=== PATIENT | female | born 1975 | race Caucasian/White ===

== ENCOUNTER 2018-11-07 19:44 | Inpatient (IN) | payer OTHER ==
[2018-11-07 19:48] VITALS: BMI 16.2
[2018-11-07] MEDS ORDERED: SODIUM CHLORIDE 0.9% 1000 ML INFUS.BAG IV ONE (20:06)
[2018-11-07] MEDS ORDERED: ONDANSETRON 4 MG/2 ML VIAL IVPUSH ONE (20:06)
[2018-11-07] MEDS ORDERED: FAMOTIDINE 20 MG/50 ML IVPB 20 MG/50 ML MG IVPB ONE ×2 (20:06→20:29)
[2018-11-07] MEDS ORDERED: ONDANSETRON 4 MG/2 ML VIAL ONE (20:28)
[2018-11-07 20:34] LABS: BASO % 1.1 % (0-2.0); EOS % 0.2 % (0-4.5); HEMATOCRIT 31.3 % (32.4-45.2); LYMPH % 23.7 % (8-40); MCH 31.9 pg (25.7-33.7); MCHC 35.1 g/dl (32.0-36.0); MEAN CELL VOLUME 90.9 fl (80-96); MEAN PLT VOLUME 7.8 fl (7.5-11.1); PLATELET COUNT 162 K/MM3 (134-434); RBC 3.45 M/mm3 (3.60-5.2); RDW 18.3 % (11.6-15.6); WHITE BLOOD COUNT 3.8 K/mm3 (4.0-10.0)
--- NOTE | 2018-11-07 20:34 | PDOC ---
History of Present Illness - General Chief Complaint: Nausea/Vomiting Stated Complaint: VOMITING Time Seen by Provider: 11/07/18 19:59 History Source: Patient Exam Limitations: No Limitations - History of Present Illness Initial Comments: 11/07/18 20:12 The patient is a 43F with a PMH of epilepsy and possible vertigo (takes meclizine) who presents to the ER with 1 day of vertiginous dizziness, nausea, and vomiting. The patient states that she was on her way to an event and began to feel vertiginous dizziness. She then developed nausea and vomiting. She states that she gets these episodes when she feels seizures, but did not have a seizure today. She denies any numbness, tingling, or weakness, fever, chills, CP , SOB. She admits to periumbilical abdominal pain which started with her vomiting. She denies any bloody or bilious vomiting. Past History - Past Medical History Allergies/Adverse Reactions: Allergies Allergy/AdvReac Type Severity Reaction Status Date / Time No Known Allergies Allergy Verified 11/07/18 19:48 COPD: No Seizures: Yes - Suicide/Smoking/Psychosocial Hx Smoking History: Never smoked Review of Systems - Review of Systems Able to Perform ROS?: Yes Comments:: 11/07/18 20:51 GENERAL/CONSTITUTIONAL: No fever or chills. No weakness. HEAD, EYES, EARS, NOSE AND THROAT: No change in vision. No ear pain or discharge. No sore throat. CARDIOVASCULAR: No chest pain, palpitations, or lightheadedness. RESPIRATORY: No cough, wheezing, shortness of breath, or hemoptysis. GASTROINTESTINAL: + for nausea, vomiting, and abdominal pain. No diarrhea or constipation. GENITOURINARY: No dysuria, frequency, hematuria, or change in urination. MUSCULOSKELETAL: No joint or muscle swelling or pain. No neck or back pain. SKIN: No rash or lesions. NEUROLOGIC: + for vertiginous dizziness. No headache, numbness, tingling, focal weakness, loss of consciousness, or change in strength/sensation. Is the patient limited Japanese proficient: No *Physical Exam - Vital Signs Last Vital Signs Temp Pulse Resp BP Pulse Ox 97.3 F L 70 18 102/32 L 100 11/07/18 19:45 11/07/18 19:45 11/07/18 19:45 11/07/18 19:45 11/07/18 19:45 - Physical Exam Comments: 11/07/18 20:52 GENERAL: Well developed, well nourished. Awake and alert. No acute distress. HEENT: Normocephalic, atraumatic. Hearing grossly normal. Moist mucous membranes. PERRLA, EOMI. No conjunctival pallor. NECK: Supple. Full ROM. No JVD. CARDIOVASCULAR: Regular rate and rhythm. No murmurs, rubs, or gallops. Distal pulses are 2+ and symmetric. PULMONARY: No evidence of respiratory distress. Lungs clear to auscultation bilaterally. No wheezing, rales or rhonchi. ABDOMINAL: Soft. Non-tender. Non-distended. No rebound or guarding. GENITOURINARY: No CVA tenderness bilaterally. MUSCULOSKELETAL: Normal range of motion at all joints. No bony deformities or tenderness. EXTREMITIES: No cyanosis. No clubbing. No edema. No calf tenderness or swelling. SKIN: Warm and dry. Normal capillary refill. No rashes. No jaundice. NEUROLOGICAL: Alert, awake, appropriate. Cranial nerves 2-12 intact. No deficits to light touch and temperature in face, upper extremities and lower extremities. 5/5 strength in deltoids, biceps, triceps, quadriceps, hamstrings, and gastrocnemius. Finger to nose normal bilaterally. Normal speech. Gait is normal without ataxia. PSYCHIATRIC: Cooperative. Good eye contact. Appropriate mood and affect. Moderate Sedation - Procedure Monitoring Vital Signs: Procedure Monitoring Vital Signs Temperature 97.3 F L 11/07/18 19:45 Pulse Rate 70 11/07/18 19:45 Respiratory Rate 18 11/07/18 19:45 Blood Pressure 102/32 L 11/07/18 19:45 O2 Sat by Pulse Oximetry (%) 100 11/07/18 19:45 ED Treatment Course - LABORATORY CBC & Chemistry Diagram: 11/07/18 20:12 11/07/18 20:12 Medical Decision Making - Medical Decision Making 11/07/18 20:52 The patient is a 43F with a PMH of epilepsy and vertigo who presents to the ER with worsening vertiginous symptoms. Will treat symptomatically and reassess. Pt mildly uncomfortable appearing. Pending labs and medications. 11/07/18 23:14 CBC shows mild leukopenia. CMP WNL. Preg negative. CTH negative. Pt requiring multiple doses of ativan for nauseous sensation. 11/07/18 23:24 Pt continues to feel vertiginous sensation with blurry/double vision. Concern for central cause of vertigo. Will microblog for admission. 11/07/18 23:38 Pt refused meclizine because "it makes her feel more dizzy". 11/08/18 00:[address] Hammond for admission. *DC/Admit/Observation/Transfer Diagnosis at time of Disposition: Dizziness, Vertigo - Discharge Dispostion Condition at time of disposition: Guarded Decision to Admit order: Yes - Referrals - Patient Instructions - Post Discharge Activity
--- NOTE | 2018-11-07 20:40 | PDOC ---
Attending Attestation - HPI HPI: 11/07/18 21:18 The patient is a 43 year old female, with a significant past medical history of epilepsy and possible vertigo (on meclizine), who presents to the emergency department with, 1 dizziness described as room-spinning with associated nausea and NBNB vomiting. She denies recent fevers or chills. She denies recent diarrhea or constipation. She denies recent dysuria, frequency, urgency or hematuria. She denies recent chest pain or shortness of breath. Allergies: NKDA - Physicial Exam PE: 11/07/18 22:01 GENERAL: Awake, alert, and fully oriented, in no acute distress HEAD: No signs of trauma +Eyes: Vertiginous horizontal eye movement. ENT: Hearing grossly normal NECK: Normal ROM. EXTREMITIES: Normal range of motion, no edema. No clubbing or cyanosis. No cords, erythema, or tenderness +NEUROLOGICAL: Subjective decreased sensation on the right side. Strength 5/5. Finger to nose normal. Cranial nerves II through XII grossly intact. Normal speech. SKIN: Warm, Dry, normal turgor, no rashes or lesions noted. <Dheeraj Catherine - Last Filed: 11/07/18 22:01> - Resident Resident Name: Joesph Cho - ED Attending Attestation I have performed the following: I have examined & evaluated the patient, The case was reviewed & discussed with the resident, I agree w/resident's findings & plan, Exceptions are as noted - Physicial Exam PE: 11/08/18 14:34 CORRECTION TO SCRIBE NOTE: Subject decreased sensation on left side, not right side. CN II-XII intact except for subjective decreased sensation on left side. 11/08/18 14:35 Horizontal ocular movements induced vertigo, though I did not witness nystagmus. - Medical Decision Making 11/07/18 20:46 A portion of this note was documented by scribe services under my direction. I have reviewed the details of the note, within reason, and agree with the documentation with the following case summary and management plan written by me. Patient treated in the ED. Nursing notes are reviewed and incorporated into the medical decision-making. Vital signs reviewed. Peripheral IV access obtained by the nurse, laboratory studies are drawn and sent, reviewed and interpreted by myself. Vital Signs Temp Pulse Resp BP Pulse Ox 97.3 F L 70 18 102/32 L 100 11/07/18 19:45 11/07/18 19:45 11/07/18 19:45 11/07/18 19:45 11/07/18 19:45 43-year-old female with history of epilepsy, vertigo history presents with vertiginous like symptoms since this morning. Patient reported that she felt very intense dizziness but denies headaches. Reports nausea with this. Denies recent illnesses, fevers, chills. Patient reported that she had a similar episode like this before which was supposedly vertigo. I suspect patient likely has peripheral vertigo. We'll attempt to control the patient's symptoms with medications and reassess. If the symptoms do not improve , consider head CT and potential admission to the hospital. 11/07/18 23:28 CBC, BMP 11/07/18 20:12 11/07/18 20:12 CMP Sodium 139 mmol/L (136-145) 11/07/18 20:12 Potassium 4.6 mmol/L (3.5-5.1) 11/07/18 20:12 Chloride 109 mmol/L (98-107) H 11/07/18 20:12 Carbon Dioxide 24 mmol/L (21-32) 11/07/18 20:12 Anion Gap 7 MMOL/L (8-16) L 11/07/18 20:12 BUN 12 mg/dL (7-18) 11/07/18 20:12 Creatinine 0.6 mg/dL (0.55-1.3) 11/07/18 20:12 Creat Clearance w eGFR > 60 (>60) 11/07/18 20:12 Random Glucose 103 mg/dL (74-106) 11/07/18 20:12 Calcium 8.4 mg/dL (8.5-10.1) L 11/07/18 20:12 Total Bilirubin 0.4 mg/dL (0.2-1) 11/07/18 20:12 AST 27 U/L (15-37) 11/07/18 20:12 ALT 13 U/L (13-61) 11/07/18 20:12 Alkaline Phosphatase 24 U/L (45-117) L 11/07/18 20:12 Total Protein 7.2 g/dl (6.4-8.2) 11/07/18 20:12 Albumin 3.6 g/dl (3.4-5.0) 11/07/18 20:12 Lipase 77 U/L (73-393) 11/07/18 20:12 Serum , Qual Negative 11/07/18 20:12 No acute findings on head CT. However, pt has persistent vertiginous symptoms without improvement in symptoms. Pt with subjective left sided numbness. May need MRI/MRA brain and neck. Admit. <Avinash Fang - Last Filed: 11/08/18 14:36> Heart Score/ECG Review #1 ECG reviewed & interpreted by me at: 20:30 11/07/18 20:40 NSR 68, no std/kimberly, normal axis, normal intervals, QTC 448 msec. normal ECG <Avinash Fang - Last Filed: 11/08/18 14:36> Attestations - Attestations 11/07/18 21:18 Documentation prepared by Dheeraj Catherine, acting as medical office administrator for Avinash Fang MD. <Dheeraj Catherine - Last Filed: 11/07/18 22:01>
[2018-11-07] MEDS ORDERED: ACETAMINOPHEN 1000 MG/100 ML VIAL (NON FORMULARY) IVPB ONE (20:45)
[2018-11-07] MEDS ORDERED: diazePAM CARPU-JECT 10 MG/2 ML DISP.SYRIN IVPUSH ONE (20:45)
[2018-11-07 21:05] LABS: ALBUMIN 3.6 g/dl (3.4-5.0); ALK PHOS 24 U/L (45-117); ANION GAP 7 MMOL/L (8-16); BILIRUBIN,TOTAL 0.4 mg/dL (0.2-1); BLOOD UREA NITROGEN 12 mg/dL (7-18); CALCIUM 8.4 mg/dL (8.5-10.1); CHLORIDE 109 mmol/L (98-107); CO2 24 mmol/L (21-32); CREATININE 0.6 mg/dL (0.55-1.3); GLUCOSE,RANDOM 103 mg/dL (74-106); LIPASE 77 U/L (73-393); POTASSIUM 4.6 mmol/L (3.5-5.1); SGOT/AST 27 U/L (15-37); SGPT/ALT 13 U/L (13-61); SODIUM 139 mmol/L (136-145); TOT PROT 7.2 g/dl (6.4-8.2)
[2018-11-07] MEDS ORDERED: ACETAMINOPHEN INJECTION 100 ML IVPB ONE (21:07)
[2018-11-07] MEDS ORDERED: LORazepam 2 MG/ML SDV VIAL ONE ×2 (21:10→21:57)
[2018-11-07] MEDS ORDERED: METOCLOPRAMIDE HCL INJECTION 10 MG/2 ML VIAL IVPB ONE (23:24)
[2018-11-07] MEDS ORDERED: MECLIZINE HCL 25 MG TABLET (FP) PO ONE (23:27)
[2018-11-07] MEDS ORDERED: METOCLOPRAMIDE HCL INJECTION 10 MG/2 ML VIAL ONE (23:30)
[2018-11-07] MEDS ORDERED: MECLIZINE HCL 25 MG TABLET (FP) ONE (23:30)
--- NOTE | 2018-11-08 00:23 | HP ---
CHIEF COMPLAINT: vertigo room spinning , N/V PCP: HISTORY OF PRESENT ILLNESS:history is taking from Ed records as pt is not able to provide history after she recieved 2 mg Ativan The patient is a 43 year old female, with a significant past medical history of epilepsy and possible vertigo (on meclizine), who presents to the emergency department with, 1 dizziness described as room-spinning with associated nausea and NBNB vomiting. She denies recent fevers or chills. She denies recent diarrhea or constipation. She denies recent dysuria, frequency, urgency or hematuria. She denies recent chest pain or shortness of breath. ER course was notable for: (1)head CT negative (2)cbc, cmp (3) Recent Travel: PAST MEDICAL HISTORY:Seizure PAST SURGICAL HISTORY:not able to obtain Social History:not able to obtain Family History: Allergies No Known Allergies Allergy (Verified 11/07/18 19:48) HOME MEDICATIONS: REVIEW OF SYSTEMS not able to obtain PHYSICAL EXAMINATION Vital Signs - 24 hr 11/07/18 19:45 Temperature 97.3 F L Pulse Rate 70 Respiratory 18 Rate Blood Pressure 102/32 L O2 Sat by Pulse 100 Oximetry (%) GENERAL: sleepy HEAD: NC/AT EYES: Pupils equal, round and reactive to light, extraocular movements intact, sclera anicteric, conjunctiva clear. EARS, NOSE, THROAT: Ears normal, nares patent, oropharynx clear without exudates. Moist mucous membranes. NECK: supple LUNGS: Breath sounds equal, clear to auscultation bilaterally. No wheezes, and no crackles. No accessory muscle use. HEART: Regular rate and rhythm, normal S1 and S2 without murmur, rub or gallop. ABDOMEN: Soft, nontender, not distended, normoactive bowel sounds, no guarding, UPPER EXTREMITIES: 2+ pulses, warm, well-perfused. No cyanosis. No clubbing. No peripheral edema. LOWER EXTREMITIES: 2+ pulses, warm, well-perfused. No calf tenderness. No peripheral edema. NEUROLOGICAL: Cranial nerves II-XII intact. PSYCHIATRIC: lethargic sleepy Laboratory Results - last 24 hr 11/07/18 11/07/18 11/07/18 20:12 20:12 20:12 WBC 3.8 L RBC 3.45 L Hgb 11.0 Hct 31.3 L MCV 90.9 MCH 31.9 MCHC 35.1 RDW 18.3 H Plt Count 162 MPV 7.8 Absolute Neuts (auto) 2.6 Neutrophils % 68.0 Lymphocytes % 23.7 Monocytes % 7.0 Eosinophils % 0.2 Basophils % 1.1 Nucleated RBC % 0 Sodium 139 Potassium 4.6 Chloride 109 H Carbon Dioxide 24 Anion Gap 7 L BUN 12 Creatinine 0.6 Creat Clearance w eGFR > 60 Random Glucose 103 Calcium 8.4 L Total Bilirubin 0.4 AST 27 ALT 13 Alkaline Phosphatase 24 L Total Protein 7.2 Albumin 3.6 Lipase 77 Serum , Qual Negative Valproic Acid 11/07/18 21:00 WBC RBC Hgb Hct MCV MCH MCHC RDW Plt Count MPV Absolute Neuts (auto) Neutrophils % Lymphocytes % Monocytes % Eosinophils % Basophils % Nucleated RBC % Sodium Potassium Chloride Carbon Dioxide Anion Gap BUN Creatinine Creat Clearance w eGFR Random Glucose Calcium Total Bilirubin AST ALT Alkaline Phosphatase Total Protein Albumin Lipase Serum , Qual Valproic Acid 82.5 CBC, BMP 11/07/18 20:12 11/07/18 20:12 ASSESSMENT/PLAN: he patient is a 43 year old female, with a significant past medical history of epilepsy and possible vertigo (on meclizine), who presents to the emergency department with, 1 dizziness described as room-spinning with associated nausea and NBNB vomiting. # Vertigo peripheral (BPV ) unlikely central with N/V * Head CT negative , follow MRI brain , Carotid doppler result , echo * IV fluids NS @ 100 cc/hr * Zofran for nausea * Ativan x1 in ED * Meclzine 25 TID * if no improvement in AM will consult Neuro * neurocheck q 2 hr * urine tox * eply maneuver in am * EKG with NSR and no QTC prolongation 448 , no st , t wave changes * wbc normal with no fever or chills no infection signs # H/O Seizure * Valproic acid level therapeutic * resume home dose * seizure precautions # FEN * NS @ 100 CC /hr * E: monitor georgi * regular diet in AM # proph * scds , lovenox 40 sq daily # Dispo * med surg, obs Visit type - Emergency Visit Emergency Visit: Yes ED Registration Date: 11/07/18 Care time: The patient presented to the Emergency Department on the above date and was hospitalized for further evaluation of their emergent condition. - New Patient This patient is new to or today: Yes Date on this admission: 11/07/18 - Critical Care Critical Care patient: No
[2018-11-08] MEDS ORDERED: MECLIZINE HCL 25 MG TABLET (FP) PO PRN (00:46)
--- NOTE | 2018-11-08 00:50 | PN ---
Teaching Attending Note Name of Resident: Phil Hammond ATTENDING PHYSICIAN STATEMENT I saw and evaluated the patient. I reviewed the resident's note and discussed the case with the resident. I agree with the resident's findings and plan as documented. SUBJECTIVE: Seen and examined; please refer to resident note for further historical information. Briefly, this is a 43 y/o female with a PMH of vertigo Rx'd home meclizine who presents with vertiginous symptoms. She told the ER she had L- sided facial numbness. We saw her shortly after she got ativan and >1.5 hours after the dose and she was still somnolent and not providing history, though she was not altered when she came in. She thus cannot provide hx (will reassess when she is more awake). She is documented as declining dose of meclizine in the ER. Spoke with ER attending at length; appears to be likely peripheral vertigo that is very severe but given her numbness she indicated on presenting should r/o other condition. Has a history of epilepsy on valproate with therapeutic levels (she is unsure of dose and we are working to confirm) and is a current tobacco abuser. No seizure activity was noted during any of these events and she was mentating normally prior to the ativan. BP is low- normal but HR normal and she has a large cuff on small arms; orthostatics pending. 10 sys ROS will be completed when pt awake; couldn't do at this time due to somnolence PMH, PSH, Family hx, Social hx reviewed Medication list not yet complete; I have asked for them to be entered and reconciled. Pending; she cannot currently recall. OBJECTIVE: VS, labs, imaging reviewed NAD, very sleepy, resting comfortably in bed NC AT EOMI PERRLA RRR s1/2 no mgr Lungs CTAB w/ sym exp Somnolent 2/2 ativan but CN intact and moves all 4 limbs when in bed; intact tactile and painful stimuli b/l UE/LE. Will do full NIHSS when ativan wears off. Skin with tattoos; no abbrasions, etc. Couldn't assess psych CT head reviewed; final report pending with prelim read showing ASSESSMENT AND PLAN: Patient presents with vertigo and documented L-sided facial numbness; she was given ativan for the vertigo and is too sleepy to provide a history but has no discernable neurological deficits at this time. Valproate level is therapeutic and no seizure activity noted. 1) Likely peripheral vertigo -PRN meclizine, monitor for recurrance of sx. Consider consulting neurology for further recommendations. If she feels the meclizine is innefective perhaps a dose increase could help. If it is refractory to meclizine ad adjusted doses then I would go ahead and add in secondary methods, etc. -Neuro checks, seizure precautions 2) Numbness -Will complete NIHSS formally when ativan wears off but she had apparent intact sensation when sleeping and moving all extremities, grimmacing, etc. Should also consider, if persistent, other items on ddx. -Low probability this represents a CVA; will check MRI and carotid dopplers and echo for completeness and assess for risk factors. Consider neuro to see if persistent concern. 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
[2018-11-08] MEDS: SODIUM CHLORIDE 1,000 ML IV SCH ×2 (00:55→15:24)
[2018-11-08 05:16] LABS: URINE APPEARANCE CLEAR; URINE BILIRUBIN NEGATIVE (<2.0 mg/dL); URINE COLOR LTYELLOW; URINE GLUCOSE (UA) NEGATIVE (NEGATIVE); URINE KETONE TRACE (NEGATIVE); URINE LEUK ESTERASE NEGATIVE (NEGATIVE); URINE NITRITE NEGATIVE (NEGATIVE); URINE PROTEIN NEGATIVE (NEGATIVE); URINE UROBILINOGEN NEGATIVE mg/dL (0.2-1.0)
[2018-11-08 05:31] LABS: COCAINE, UR NEGATIVE ng/ml (CUTOFF=300); METHADONE, UR NEGATIVE ng/ml (CUTOFF=300); OPIATES, URI NEGATIVE ng/ml (CUTOFF=300); PHENCYCLIDINE,URINE NEGATIVE ng/ml (CUTOFF=25); URINE AMPHETAMINES NEGATIVE ng/ml (CUTOFF=500); URINE BARBITURATES NEGATIVE ng/ml (CUTOFF=200); URINE BENZODIAZEPINES NEGATIVE ng/ml (CUTOFF=200)
[2018-11-08] MEDS: ENOXAPARIN NA (PORCINE) 40 MG/0.4 ML DISP.SYRIN SQ SCH (09:17)
--- NOTE | 2018-11-08 11:50 | EKG ---
Test Reason : Blood Pressure : / mmHG Vent. Rate : 068 BPM Atrial Rate : 068 BPM P-R Int : 118 ms QRS Dur : 080 ms QT Int : 422 ms P-R-T Axes : 076 080 060 degrees QTc Int : 448 ms POOR DATA QUALITY, INTERPRETATION MAY BE ADVERSELY AFFECTED NORMAL SINUS RHYTHM NORMAL ECG NO PREVIOUS ECGS AVAILABLE Confirmed by SHARLENE ENG MD ([id number]) on 11/08/2018 11:49:56 AM Referred By: Confirmed By:SHARLENE ENG MD
[2018-11-08] MEDS ORDERED: SODIUM CHLORIDE 500 ML IV STA (12:34)
--- NOTE | 2018-11-08 13:23 | PN ---
Progress Note (short form) - Note Progress Note: Subjective: feels dizzy ( vertigo and light headed) especially when she moves her head frm side to side. she felt vertigo yesterday and vomited a lot , non bloody. and her friend dropped her here. she has h/o verigo, happened 2-3 time in past 2 years. lasted 2 days each time. reports meclizine did not work for her in past. no weakness, numbness or tingling. in ER she was given ativan. she is compliant with her seizure medication. denies urinary sx , or fever ro chills. or diarrhea Objective: Vital Signs: Last Vital Signs Temp Pulse Resp BP Pulse Ox 98.3 F 82 20 84/48 L 98 11/08/18 09:43 11/08/18 09:43 11/08/18 09:43 11/08/18 09:43 11/08/18 09:43 Laboratory Results - last 24 hr 11/07/18 11/07/18 11/07/18 20:12 20:12 20:12 WBC 3.8 L RBC 3.45 L Hgb 11.0 Hct 31.3 L MCV 90.9 MCH 31.9 MCHC 35.1 RDW 18.3 H Plt Count 162 MPV 7.8 Absolute Neuts (auto) 2.6 Neutrophils % 68.0 Lymphocytes % 23.7 Monocytes % 7.0 Eosinophils % 0.2 Basophils % 1.1 Nucleated RBC % 0 ESR Sodium 139 Potassium 4.6 Chloride 109 H Carbon Dioxide 24 Anion Gap 7 L BUN 12 Creatinine 0.6 Creat Clearance w eGFR > 60 Random Glucose 103 Calcium 8.4 L Total Bilirubin 0.4 AST 27 ALT 13 Alkaline Phosphatase 24 L C-Reactive Protein Total Protein 7.2 Albumin 3.6 Lipase 77 Vitamin B12 Serum , Qual Negative Urine Color Urine Appearance Urine pH Ur Specific Howell Urine Protein Urine Glucose (UA) Urine Ketones Urine Blood Urine Nitrite Urine Bilirubin Urine Urobilinogen Ur Leukocyte Esterase Opiates Screen Methadone Screen Barbiturate Screen Valproic Acid Phencyclidine Screen Ur Amphetamines Screen MDMA (Ecstasy) Screen Benzodiazepines Screen Cocaine Screen U Marijuana (THC) Screen 11/07/18 11/08/18 11/08/18 21:00 05:00 05:00 WBC RBC Hgb Hct MCV MCH MCHC RDW Plt Count MPV Absolute Neuts (auto) Neutrophils % Lymphocytes % Monocytes % Eosinophils % Basophils % Nucleated RBC % ESR Sodium Potassium Chloride Carbon Dioxide Anion Gap BUN Creatinine Creat Clearance w eGFR Random Glucose Calcium Total Bilirubin AST ALT Alkaline Phosphatase C-Reactive Protein Total Protein Albumin Lipase Vitamin B12 Serum , Qual Urine Color Ltyellow Urine Appearance Clear Urine pH 7.0 Ur Specific Howell 1.012 Urine Protein Negative Urine Glucose (UA) Negative Urine Ketones Trace H Urine Blood Negative Urine Nitrite Negative Urine Bilirubin Negative Urine Urobilinogen Negative Ur Leukocyte Esterase Negative Opiates Screen Negative Methadone Screen Negative Barbiturate Screen Negative Valproic Acid 82.5 Phencyclidine Screen Negative Ur Amphetamines Screen Negative MDMA (Ecstasy) Screen Negative Benzodiazepines Screen Negative Cocaine Screen Negative U Marijuana (THC) Screen Negative 11/08/18 11/08/18 07:15 07:15 WBC RBC Hgb Hct MCV MCH MCHC RDW Plt Count MPV Absolute Neuts (auto) Neutrophils % Lymphocytes % Monocytes % Eosinophils % Basophils % Nucleated RBC % ESR 5 Sodium Potassium Chloride Carbon Dioxide Anion Gap BUN Creatinine Creat Clearance w eGFR Random Glucose Calcium Total Bilirubin AST ALT Alkaline Phosphatase C-Reactive Protein < 0.3 Total Protein Albumin Lipase Vitamin B12 477 Serum , Qual Urine Color Urine Appearance Urine pH Ur Specific Howell Urine Protein Urine Glucose (UA) Urine Ketones Urine Blood Urine Nitrite Urine Bilirubin Urine Urobilinogen Ur Leukocyte Esterase Opiates Screen Methadone Screen Barbiturate Screen Valproic Acid Phencyclidine Screen Ur Amphetamines Screen MDMA (Ecstasy) Screen Benzodiazepines Screen Cocaine Screen U Marijuana (THC) Screen Physical Exam: NAD, awake, alert , oriented. CV: RRR. Lungs: CTAB Abd: soft, NT, ND , NL BS Ext : no edema or erythema Neuro: EOMI, round equal pupils, reactive to light. no facial droop, tongue and uvula at mid line. Strength 5/5 in upper and lower extremities proximally and distally. sensation to light touch decreased in R face, and R upper and lower extremities. reflexes 1+ biceps , and knee jerk Susan Halpike positive on both sides Imaging: MRI report reviewed . CUS pending Assessment/Plan: 43 y/o lady with h/o vertigo and seizures who presented for vertigo 1- Vertigo: likely due to BPV. as susan Halpike is positive. hypotension due to severe vomiting is contributing too - bolus 500 of IVF now - cont 100 cc /hr - meclizine 25 TID standing - MRI neg for stroke. can't explaine R sided decreased sensation - patient requested ativan and valium and declined meclizine. benzos are not the treatement for BPV - neuro consult - RPR, HIV, pending 2- H/o seizures : cont her home meds . confirmed with her 3- hypotension : likely due to hypovolemia from vomiting . no signs of infection benign exam - PPI - IVF - if fever , will send blood cx DVT px Note: patient became very angry and aggravated and fired MD when MD refused to give her ativan and valium. Visit type - Emergency Visit Emergency Visit: Yes ED Registration Date: 11/07/18 Care time: The patient presented to the Emergency Department on the above date and was hospitalized for further evaluation of their emergent condition. - New Patient This patient is new to me today: Yes Date on this admission: 11/08/18 - Critical Care Critical Care patient: No
[2018-11-08] MEDS ORDERED: lamoTRIgine 100 MG TABLET (FP) PO ONE (13:29)
[2018-11-08] MEDS: levETIRAcetam 500 MG TABLET (FP) PO SCH ×2 (14:03→21:09)
[2018-11-08] MEDS: PANTOPRAZOLE 40 MG TABLET (FP) PO SCH (14:03)
[2018-11-08] MEDS ORDERED: PT OWN MED DRAWER 7, Y5N ONE ×2 (15:22→20:58)
[2018-11-08] MEDS: MECLIZINE HCL 25 MG TABLET (FP) PO SCH ×2 (15:30→21:10)
[2018-11-08] MEDS ORDERED: PROCHLORPERAZINE INJECTION 10 MG/2 ML VIAL IVPB PRN (17:42)
--- NOTE | 2018-11-08 17:50 | CON.NEURO ---
Consult Consult Specialty:: Zhane Referred by:: PCP - History of Present Illness History of Present Illness: 43-year-old right-handed female patient with essentially history of epilepsy mild anxiety presented to the hospital with a chief complaint of difficulty with her dizziness. Patient denies any trauma to the head patient describes no blurry vision double vision mild nausea associated with the dizziness patient was requesting benzodiazepine which we refused. MRI of the brain was negative carotid Doppler was negative. - History Source History Provided By: Patient Limitations to Obtaining History: No Limitations - Smoking History Smoking history: Never smoked Home Medications - Allergies Allergies/Adverse Reactions: Allergies Allergy/AdvReac Type Severity Reaction Status Date / Time No Known Allergies Allergy Verified 11/07/18 19:48 - Home Medications Home Medications: Ambulatory Orders Divalproex *ER* [Depakote *ER* -] 500 mg PO HS 11/08/18 Lamotrigine [Lamictal] 100 mg PO BID 11/08/18 Levetiracetam [Keppra] 1,000 mg PO DAILY 11/08/18 levETIRAcetam [Keppra -] 1,500 mg PO HS 11/08/18 Family Disease History - Family Disease History Family History: Denies (cva) Physical Exam-Neuro Vital Signs: Vital Signs Temperature 98.3 F 11/08/18 09:43 Pulse Rate 75 11/08/18 15:27 Respiratory Rate 20 11/08/18 15:27 Blood Pressure 92/55 L 11/08/18 15:27 O2 Sat by Pulse Oximetry (%) 98 11/08/18 09:43 Constitutional: Yes: Well Nourished Neck: Yes: WNL Labs: CBC, BMP 11/07/18 20:12 11/07/18 20:12 - Neuro Exam Level Of Consciousness: Yes: Oriented to Person, Oriented to Place, Oriented to Time Eyes: Yes: PERRLA Speech: WNL Dominant Hand: Right Cranial Nerves II-XII Intact: Yes Gag: Present DTR's: 1+ Left Bicep, 1+ Right Bicep, 1+ Left Tricep, 1+ Right Tricep Response to light touch: Normal Response to pain prick: Normal Response to temperature: Normal Motor Strength: 3/5: Left Arm, Right Arm, Left Leg, Right Leg Gait: Deferred Imaging - Results Cat Scan: Image Reviewed MRI: Image Reviewed Problem List - Problems (1) Epilepsy Assessment/Plan: Blood level EEG Code(s): G40.909 - EPILEPSY, UNSP, NOT INTRACTABLE, WITHOUT STATUS EPILEPTICUS (2) Dizziness Assessment/Plan: No benzo INcrase Lamictel Trial of elavil Code(s): R42 - DIZZINESS AND GIDDINESS (3) Vertigo Code(s): R42 - DIZZINESS AND GIDDINESS
[2018-11-08] MEDS: ONDANSETRON 4 MG/2 ML VIAL IVPB PRN (18:57)
--- NOTE | 2018-11-08 19:10 | HOSP ---
Subjective - Review of Symptoms Events since last encounter: Met with patient per her request in the presence of HOWARD Trivedi superviser. diagnosis and treatment options ( meclizine, IVF, zofran ) were explained to her again pt complains of nausea all day but no vomiting and tolerated her breakfast and lunch with no problem. patient was offered compazine in alternation with zofran for nausea control . she cont to request ativan. pt is showing red flags of benzo dependence. In addition, her BP is low and benzos can worsen hypotension. contraindicated in her case. patient became verbally inappropriate and abusive. RN supperviser was asked to handle situation. Physical Examination Vital Signs: Vital Signs Temperature 98.3 F 11/08/18 09:43 Pulse Rate 75 11/08/18 15:27 Respiratory Rate 20 11/08/18 15:27 Blood Pressure 92/55 L 11/08/18 15:27 O2 Sat by Pulse Oximetry (%) 98 11/08/18 09:43 Labs: CBC, BMP 11/07/18 20:12 11/07/18 20:12
[2018-11-08] MEDS: DIVALPROEX NA *ER* EXTEND REL 500 MG TABLET.SA (FP) PO SCH (21:09)
[2018-11-08] MEDS: lamoTRIgine 100 MG TABLET (FP) PO SCH (21:10)
[2018-11-08] MEDS: AMITRIPTYLINE HCL 25 MG TABLET (FP) PO SCH (21:13)
[2018-11-09] MEDS ORDERED: PT OWN MED DRAWER 7, Y5N ONE ×5 (05:24→21:07)
[2018-11-09] MEDS: MECLIZINE HCL 25 MG TABLET (FP) PO SCH ×3 (05:26→21:45)
[2018-11-09 06:14] LABS: BASO % 0.6 % (0-2.0); EOS % 1.9 % (0-4.5); HEMATOCRIT 28.7 % (32.4-45.2); HEMOGLOBIN 9.7 GM/dL (10.7-15.3); LYMPH % 67.6 % (8-40); MCH 30.5 pg (25.7-33.7); MCHC 33.6 g/dl (32.0-36.0); MEAN CELL VOLUME 90.8 fl (80-96); MEAN PLT VOLUME 7.8 fl (7.5-11.1); MONO % 10.8 % (3.8-10.2); NEUT % 19.1 % (42.8-82.8); PLATELET COUNT 141 K/MM3 (134-434); RBC 3.16 M/mm3 (3.60-5.2); RDW 18.4 % (11.6-15.6); WHITE BLOOD COUNT 3.9 K/mm3 (4.0-10.0)
[2018-11-09 06:29] LABS: INR 1.11 (0.83-1.09); PROTHROMBIN TIME (PATIENT) 13.1 SEC (9.7-13.0)
[2018-11-09 06:32] LABS: ACTIVATED PTT 34.9 SECONDS (25.2-36.5)
[2018-11-09 06:52] LABS: ALK PHOS 21 U/L (45-117); ANION GAP 6 MMOL/L (8-16); BILIRUBIN,TOTAL 0.2 mg/dL (0.2-1); BLOOD UREA NITROGEN 6 mg/dL (7-18); CALCIUM 7.9 mg/dL (8.5-10.1); CHLORIDE 113 mmol/L (98-107); CO2 23 mmol/L (21-32); CREATININE 0.5 mg/dL (0.55-1.3); GLUCOSE,RANDOM 72 mg/dL (74-106); MAGNESIUM 1.9 mg/dL (1.8-2.4); PHOSPHOROUS 2.6 mg/dL (2.5-4.9); POTASSIUM 4.2 mmol/L (3.5-5.1); SGOT/AST 8 U/L (15-37); SGPT/ALT 11 U/L (13-61); SODIUM 142 mmol/L (136-145); TOT PROT 5.9 g/dl (6.4-8.2)
[2018-11-09 08:42] LABS: ANISOCYTOSIS 0; MACROCYTOSIS 0; PLATELET ESTIMATE DECREASED
[2018-11-09] MEDS: levETIRAcetam 500 MG TABLET (FP) PO SCH ×2 (10:31→21:44)
[2018-11-09] MEDS: ENOXAPARIN NA (PORCINE) 40 MG/0.4 ML DISP.SYRIN SQ SCH (10:31)
[2018-11-09] MEDS: PANTOPRAZOLE 40 MG TABLET (FP) PO SCH (10:32)
[2018-11-09] MEDS: lamoTRIgine 100 MG TABLET (FP) PO SCH ×2 (10:32→21:45)
[2018-11-09] MEDS: ONDANSETRON 4 MG/2 ML VIAL IVPB PRN (10:58)
--- NOTE | 2018-11-09 14:26 | ECHO ---
Name: MAYELA SANDY Exam:Adult Echocardiogram Study Date: 11/09/2018 09:30 AM Age: 43 yrs Reason For Study: Facial Numbness, Vertigo Height: 64 in Weight: 95 lb BSA: 1.4 m2 MMode/2D Measurements & Calculations IVSd: 0.74 cm ACS: 2.0 cm LVIDd: 3.7 cm LVIDs: 2.7 cm LVPWd: 1.0 cm EDV(Teich): 58.8 ml LVOT diam: 1.9 cm ESV(Teich): 25.8 ml RV S Jose: 13.7 cm/sec Doppler Measurements & Calculations MV E max jose: 76.6 cm/sec MV A max jose: 87.8 cm/sec MV dec slope: 137.8 cm/sec2 MV E/A: 0.87 TR max jose: 223.9 cm/sec Med Peak E' Jose: 11.4 cm/sec TR max P.0 mmHg Med E/e': 6.7 Lat Peak E' Jose: 16.0 cm/sec Lat E/e': 4.8 Procedure A complete two-dimensional transthoracic echocardiogram was performed (2D, M-mode, Doppler and color flow Doppler). Left Ventricle The left ventricle is normal in size. Left ventricular systolic function is normal. Ejection Fraction = 60- 65%. No regional wall motion abnormalities noted. Right Ventricle The right ventricle is normal size. The right ventricular systolic function is normal. RV systolic TD I is 14 cm/s. Atria The left atrial size is normal. Right atrial size is normal. Mitral Valve The mitral valve is normal in structure and function. There is no mitral regurgitation noted. Tricuspid Valve The tricuspid valve is normal in structure and function. No tricuspid regurgitation. Aortic Valve The aortic valve is normal in structure and function. No aortic regurgitation is present. Pulmonic Valve The pulmonic valve is not well visualized. Great Vessels The aortic root is normal size. Pericardium/Pleura There is no pericardial effusion. Interpretation Summary The left ventricle is normal in size. No regional wall motion abnormalities noted. Left ventricular systolic function is normal. Ejection Fraction = 60-65%. The right ventricular systolic function is normal. The left atrial size is normal. Right atrial size is normal. No significant valvular regurgitations are seen There is no pericardial effusion. Previous study is not available for comparison Ken Finn MD 11/09/2018 02:25 PM
--- NOTE | 2018-11-09 15:23 | PN ---
Teaching Attending Note Name of Resident: Stanislav Mckeon ATTENDING PHYSICIAN STATEMENT I saw and evaluated the patient. I reviewed the resident's note and discussed the case with the resident. I agree with the resident's findings and plan as documented. SUBJECTIVE: seen At 11 am Feels dizzy and nauseous. No vomiting. ate all her breakfast. OBJECTIVE: NAD, awake, alert CV: RRR. Lungs: CTAB Abd: soft, NT, ND, NL BS Ext: no edema or erythema Assessment/Plan: 43 y/o lady with h/o vertigo and seizures who presented for vertigo 1- Vertigo: likely due to BPV. - cont Meclizine - cont Elavil - cont IVF - Neg HIV and RPR - No benzos - will teach her Eply Maneuver today 2- H/o seizures: cont her home meds. 3- hypotension : improved. her baseline might be on lower side no signs of infection - PPI - IVF - if fever , will send blood cx DVT px Note: patient became very angry and aggravated and fired MD when MD refused to give her ativan and valium. ASSESSMENT AND PLAN:
[2018-11-09 16:47] LABS: BASO % 0.5 % (0-2.0); EOS % 1.9 % (0-4.5); HEMATOCRIT 28.7 % (32.4-45.2); HEMOGLOBIN 9.6 GM/dL (10.7-15.3); LYMPH % 50.7 % (8-40); MCH 30.4 pg (25.7-33.7); MCHC 33.5 g/dl (32.0-36.0); MEAN CELL VOLUME 90.7 fl (80-96); MEAN PLT VOLUME 7.9 fl (7.5-11.1); MONO % 12.7 % (3.8-10.2); NEUT % 34.2 % (42.8-82.8); PLATELET COUNT 146 K/MM3 (134-434); RBC 3.16 M/mm3 (3.60-5.2); RDW 18.7 % (11.6-15.6); WHITE BLOOD COUNT 3.5 K/mm3 (4.0-10.0)
--- NOTE | 2018-11-09 17:22 | PN ---
Physical Exam: SUBJECTIVE: Patient seen and examined at bedside. Endorses feeling nauseas though no vomiting. OBJECTIVE: Vital Signs Period Temp Pulse Resp BP Sys/Kumar Pulse Ox Last 24 Hr 98.1 F-98.3 F 59-100 18-20 89-105/48-62 98-98 GENERAL: NAD HEAD: Normal with no signs of trauma. EYES: EOMI Sclera Clear LUNGS: CTAB. HEART: RRR nl s1s2 ABDOMEN: NDNT EXTREMITIES: no CCE Laboratory Results - last 24 hr 11/08/18 11/09/18 11/09/18 07:15 05:20 05:20 WBC 3.9 L RBC 3.16 L Hgb 9.7 L Hct 28.7 L MCV 90.8 MCH 30.5 MCHC 33.6 RDW 18.4 H Plt Count 141 MPV 7.8 Absolute Neuts (auto) 0.7 L Neutrophils % 19.1 L D Neutrophils % (Manual) 15.0 L Band Neutrophils % 0.0 Lymphocytes % 67.6 H D Lymphocytes % (Manual) 67.0 H Monocytes % 10.8 H Monocytes % (Manual) 12 H Eosinophils % 1.9 D Eosinophils % (Manual) 2.0 Basophils % 0.6 Basophils % (Manual) 0.0 Myelocytes % (Man) 0 Promyelocytes % (Man) 0 Blast Cells % (Manual) 0 Nucleated RBC % 0 Metamyelocytes 0 Hypochromia 0 Platelet Estimate Decreased Polychromasia 0 Poikilocytosis 0 Anisocytosis 0 Microcytosis 0 Macrocytosis 0 PT with INR 13.10 H INR 1.11 H PTT (Actin FS) 34.9 Sodium Potassium Chloride Carbon Dioxide Anion Gap BUN Creatinine Creat Clearance w eGFR Random Glucose Calcium Phosphorus Magnesium Total Bilirubin AST ALT Alkaline Phosphatase Total Protein Albumin HIV Genotype Non reactive 11/09/18 11/09/18 05:20 16:00 WBC 3.5 L RBC 3.16 L Hgb 9.6 L Hct 28.7 L MCV 90.7 MCH 30.4 MCHC 33.5 RDW 18.7 H Plt Count 146 MPV 7.9 Absolute Neuts (auto) 1.2 L Neutrophils % 34.2 L D Neutrophils % (Manual) Band Neutrophils % Lymphocytes % 50.7 H D Lymphocytes % (Manual) Monocytes % 12.7 H Monocytes % (Manual) Eosinophils % 1.9 Eosinophils % (Manual) Basophils % 0.5 Basophils % (Manual) Myelocytes % (Man) Promyelocytes % (Man) Blast Cells % (Manual) Nucleated RBC % 0 Metamyelocytes Hypochromia Platelet Estimate Polychromasia Poikilocytosis Anisocytosis Microcytosis Macrocytosis PT with INR INR PTT (Actin FS) Sodium 142 Potassium 4.2 Chloride 113 H Carbon Dioxide 23 Anion Gap 6 L BUN 6 L Creatinine 0.5 L Creat Clearance w eGFR > 60 Random Glucose 72 L Calcium 7.9 L Phosphorus 2.6 Magnesium 1.9 Total Bilirubin 0.2 AST 8 L ALT 11 L Alkaline Phosphatase 21 L Total Protein 5.9 L Albumin 3.0 L HIV Genotype Active Medications Generic Name Dose Route Start Last Admin Trade Name Freq PRN Reason Stop Dose Admin Amitriptyline HCl 25 mg 11/08/18 22:00 11/08/18 21:13 Elavil - PO 25 mg HS WO[facility] Administration Divalproex Sodium 500 mg 11/08/18 22:00 11/08/18 21:09 Depakote *Er* - PO 500 mg HS [facility] Administration Enoxaparin Sodium 40 mg 11/08/18 10:00 11/09/18 10:31 Lovenox - SQ 40 mg DAILY [facility] Administration Sodium Chloride 1,000 mls @ 100 mls/hr 11/08/18 00:45 11/08/18 15:24 Normal Saline - IV 100 mls/hr ASDIR [facility] Administration Lamotrigine 100 mg 11/08/18 22:00 11/09/18 10:32 Lamictal - PO 100 mg BID [facility] Administration Levetiracetam 1,000 mg 11/08/18 13:07 11/09/18 10:31 Keppra - PO 1,000 mg DAILY [facility] Administration Levetiracetam 1,500 mg 11/08/18 22:00 11/08/18 21:09 Keppra - PO 1,500 mg HS WO[facility] Administration Meclizine HCl 25 mg 11/08/18 14:00 11/09/18 13:21 Antivert - PO 25 mg TID [facility] Administration Ondansetron HCl 4 mg 11/08/18 00:46 11/09/18 10:58 Zofran Injection IVPB 4 mg Q6H PRN Administration NAUSEA Pantoprazole Sodium 40 mg 11/08/18 13:45 11/09/18 10:32 Protonix - PO 40 mg DAILY [facility] Administration Prochlorperazine Edisylate 5 mg 11/08/18 17:42 Compazine Injection - IVPB Q6H PRN NAUSEA AND/OR VOMITING ASSESSMENT/PLAN: Patient is a 43 year old female, w/ significant PMHx vertigo, who presented to the ED with, c/o dizziness described as room-spinning with associated nausea and NBNB vomiting. # Vertigo * Head CT negative * IV fluids. Blood cultures drawn today in light of recent hypotension. * Zofran for nausea * Ativan x1 in ED * Meclzine 25 TID * Dr Cesar on board * urine tox negative * Will teach eply maneuver in am. * EKG with NSR and no QTC prolongation * wbc normal with no fever or chills no infection signs * Elavil # H/O Seizure Keppra, Lamictal, Depakote # FEN * NS @ 100 CC /hr * Monitor electrolytes * regular diet # proph lovenox 40 sq daily # Dispo * med surg Visit type - Emergency Visit Emergency Visit: Yes ED Registration Date: 11/07/18 Care time: The patient presented to the Emergency Department on the above date and was hospitalized for further evaluation of their emergent condition. - New Patient This patient is new to me today: No - Critical Care Critical Care patient: No - Discharge Referral Referred to [facility] Med P.C.: No
[2018-11-09] MEDS: DIVALPROEX NA *ER* EXTEND REL 500 MG TABLET.SA (FP) PO SCH (21:45)
[2018-11-09] MEDS: AMITRIPTYLINE HCL 25 MG TABLET (FP) PO SCH (21:46)
--- NOTE | 2018-11-09 23:46 | EKG ---
Test Reason : Blood Pressure : / mmHG Vent. Rate : 080 BPM Atrial Rate : 080 BPM P-R Int : 132 ms QRS Dur : 078 ms QT Int : 380 ms P-R-T Axes : 075 083 067 degrees QTc Int : 438 ms NORMAL SINUS RHYTHM NORMAL ECG WHEN COMPARED WITH ECG OF 07-NOV-2018 20:27, NO SIGNIFICANT CHANGE WAS FOUND Confirmed by MERVAT LANDIS MD ([id number]) on 11/09/2018 11:46:08 PM Referred By: Confirmed By:MERVAT LANDIS MD
[2018-11-10] MEDS ORDERED: PT OWN MED DRAWER 7, Y5N ONE ×5 (06:04→20:56)
[2018-11-10] MEDS: MECLIZINE HCL 25 MG TABLET (FP) PO SCH ×3 (06:35→21:13)
[2018-11-10 08:50] LABS: HEMATOCRIT 27.5 % (32.4-45.2); HEMOGLOBIN 9.3 GM/dL (10.7-15.3); MCH 30.4 pg (25.7-33.7); MCHC 33.9 g/dl (32.0-36.0); MEAN CELL VOLUME 89.8 fl (80-96); MEAN PLT VOLUME 7.7 fl (7.5-11.1); PLATELET COUNT 135 K/MM3 (134-434); RBC 3.06 M/mm3 (3.60-5.2); RDW 18.8 % (11.6-15.6); WHITE BLOOD COUNT 3.7 K/mm3 (4.0-10.0)
[2018-11-10 09:20] LABS: ANION GAP 7 MMOL/L (8-16); BLOOD UREA NITROGEN 7 mg/dL (7-18); CALCIUM 8.4 mg/dL (8.5-10.1); CHLORIDE 109 mmol/L (98-107); CO2 25 mmol/L (21-32); CREATININE 0.6 mg/dL (0.55-1.3); GLUCOSE,RANDOM 72 mg/dL (74-106); MAGNESIUM 1.6 mg/dL (1.8-2.4); PHOSPHOROUS 3.5 mg/dL (2.5-4.9); POTASSIUM 3.5 mmol/L (3.5-5.1); SODIUM 141 mmol/L (136-145)
[2018-11-10] MEDS: PANTOPRAZOLE 40 MG TABLET (FP) PO SCH (10:17)
[2018-11-10] MEDS: ENOXAPARIN NA (PORCINE) 40 MG/0.4 ML DISP.SYRIN SQ SCH (10:18)
[2018-11-10] MEDS: lamoTRIgine 100 MG TABLET (FP) PO SCH ×2 (10:18→21:16)
[2018-11-10] MEDS: levETIRAcetam 500 MG TABLET (FP) PO SCH ×2 (10:18→21:16)
[2018-11-10] MEDS ORDERED: MAGNESIUM OXIDE 400 MG TABLET (FP) PO ONE (12:17)
[2018-11-10] MEDS ORDERED: DIVALPROEX NA *ER* EXTEND REL 500 MG TABLET.SA (FP) PO ONE ×2 (12:17→22:00)
--- NOTE | 2018-11-10 18:23 | PN ---
Teaching Attending Note Name of Resident: Stanislav Mckeon ATTENDING PHYSICIAN STATEMENT I saw and evaluated the patient. I reviewed the resident's note and discussed the case with the resident. I agree with the resident's findings and plan as documented. SUBJECTIVE: cont to feel nauseous and dizzy . ate all her food and no witnessed vomiting OBJECTIVE: declined exam Assessment/Plan: 43 y/o lady with h/o vertigo and seizures who presented for vertigo 1- Vertigo: likely due to BPV. - cont Meclizine - cont Elavil , declined last night - cont IVF - No benzos due to red flags and potential side effects - team tried to teach her Eply maneuver, but she did not cooperate and declined - cont to complain of nausea but used zofran once ( 10 am yesterday), did not use compazine at all. eating all her meals and not vomiting 2- H/o seizures: cont her home meds. she remembered that she takes depakote 1000 in HS not 500. gave 500 this morning then 500 this evening, then starting tomorrow she goes onher routine schedule 1000 mg HS 3- hypotension : improved. her baseline might be on lower side no signs of infection - blood cx pending - cont PPI - PPI - IVF 4- Leukopenia and neutropenia . likely due to keppra . - ANC 1200 yesterday. - repeat CBC with diff tomorrow . if worsening , can get heme , otherwise monitor as out pt DVT px possible dc tomorrow if sx improves and if she works with PT
--- NOTE | 2018-11-10 20:02 | PN ---
Physical Exam: SUBJECTIVE: Patient seen and examined at bedside. No acute events overnight. OBJECTIVE: Vital Signs Period Temp Pulse Resp BP Sys/Kumar Pulse Ox Last 24 Hr 97.9 F-98.8 F 59-75 20-20 89-104/52-62 97-97 GENERAL: Resting in bed. NAD HEAD: Atraumatic/Normocephalic EYES: EOMI Sclera Clear LUNGS: CTAB. HEART: RRR nl s1s2 EXTREMITIES: no CCE Laboratory Results - last 24 hr 11/07/18 11/10/18 11/10/18 20:07 07:45 07:45 WBC 3.7 L RBC 3.06 L Hgb 9.3 L Hct 27.5 L MCV 89.8 MCH 30.4 MCHC 33.9 RDW 18.8 H Plt Count 135 MPV 7.7 Sodium 141 Potassium 3.5 Chloride 109 H Carbon Dioxide 25 Anion Gap 7 L BUN 7 Creatinine 0.6 Creat Clearance w eGFR > 60 Random Glucose 72 L Calcium 8.4 L Phosphorus 3.5 Magnesium 1.6 L Lamotrigine 8.7 Levetiracetam 15.9 Active Medications Generic Name Dose Route Start Last Admin Trade Name Freq PRN Reason Stop Dose Admin Amitriptyline HCl 25 mg 11/08/18 22:00 11/09/18 21:46 Elavil - PO Not Given HS WOODROW Divalproex Sodium 1,000 mg 11/11/18 22:00 Depakote *Er* - PO HS [facility] Divalproex Sodium 500 mg 11/10/18 22:00 Depakote *Er* - PO 11/10/18 22:01 ONCE ONE Enoxaparin Sodium 40 mg 11/08/18 10:00 11/10/18 10:18 Lovenox - SQ 40 mg DAILY WO[facility] Administration Sodium Chloride 1,000 mls @ 100 mls/hr 11/08/18 00:45 11/08/18 15:24 Normal Saline - IV 100 mls/hr ASDIR [facility]ODROW Administration Lamotrigine 100 mg 11/08/18 22:00 11/10/18 10:18 Lamictal - PO 100 mg BID WOODROW Administration Levetiracetam 1,000 mg 11/08/18 13:07 11/10/18 10:18 Keppra - PO 1,000 mg DAILY WO[facility] Administration Levetiracetam 1,500 mg 11/08/18 22:00 11/09/18 21:44 Keppra - PO 1,500 mg HS WOODROW Administration Meclizine HCl 25 mg 11/08/18 14:00 11/10/18 14:20 Antivert - PO 25 mg TID [facility]ROW Administration Ondansetron HCl 4 mg 11/08/18 00:46 11/09/18 10:58 Zofran Injection IVPB 4 mg Q6H PRN Administration NAUSEA Pantoprazole Sodium 40 mg 11/08/18 13:45 11/10/18 10:17 Protonix - PO 40 mg DAILY WO[facility]ROW Administration Prochlorperazine Edisylate 5 mg 11/08/18 17:42 Compazine Injection - IVPB Q6H PRN NAUSEA AND/OR VOMITING ASSESSMENT/PLAN: Patient is a 43 year old female, w/ significant PMHx vertigo, who presented to the ED with, c/o dizziness described as room-spinning with associated nausea and NBNB vomiting. # Vertigo Head CT negative IV fluids. Blood cultures drawn today in light of recent hypotension. per prelim report--> No growth obtained. Zofran for nausea Ativan x1 in ED Meclzine [address] Cesar on board urine tox negative eply maneuver attemopted to be taught to pt but she did not cooperate and declined EKG with NSR and no QTC prolongation wbc normal with no fever or chills no infection signs Elavil # H/O Seizure Keppra, Lamictal, Depakote. Depokote increased to 1000 HS. 500 dose given earlier today. Will resume 1000 HS tomorrow night. # FEN NS @ 100 CC /hr Monitor electrolytes regular diet # proph lovenox 40 sq daily # Dispo med surg Visit type - Emergency Visit Emergency Visit: Yes ED Registration Date: 11/07/18 Care time: The patient presented to the Emergency Department on the above date and was hospitalized for further evaluation of their emergent condition. - New Patient This patient is new to me today: No - Critical Care Critical Care patient: No - Discharge Referral Referred to [facility] Med P.C.: No
[2018-11-10] MEDS: SODIUM CHLORIDE 1,000 ML IV SCH (21:00)
[2018-11-10] MEDS: AMITRIPTYLINE HCL 25 MG TABLET (FP) PO SCH (22:32)
[2018-11-11] MEDS: SODIUM CHLORIDE 1,000 ML IV SCH ×4 (05:48→16:43)
[2018-11-11] MEDS: MECLIZINE HCL 25 MG TABLET (FP) PO SCH ×3 (05:49→22:15)
[2018-11-11 07:10] LABS: BASO % 0.4 % (0-2.0); HEMATOCRIT 27.7 % (32.4-45.2); HEMOGLOBIN 9.2 GM/dL (10.7-15.3); LYMPH % 59.4 % (8-40); MCH 30.2 pg (25.7-33.7); MCHC 33.2 g/dl (32.0-36.0); MEAN PLT VOLUME 7.8 fl (7.5-11.1); NEUT % 21.2 % (42.8-82.8); PLATELET COUNT 151 K/MM3 (134-434); RBC 3.05 M/mm3 (3.60-5.2); RDW 18.6 % (11.6-15.6); WHITE BLOOD COUNT 3.7 K/mm3 (4.0-10.0)
[2018-11-11] MEDS ORDERED: PT OWN MED DRAWER 7, Y5N ONE ×4 (07:16→22:05)
[2018-11-11 07:30] LABS: ANION GAP 4 MMOL/L (8-16); BLOOD UREA NITROGEN 6 mg/dL (7-18); CALCIUM 7.8 mg/dL (8.5-10.1); CHLORIDE 110 mmol/L (98-107); CO2 26 mmol/L (21-32); CREATININE 0.4 mg/dL (0.55-1.3); GLUCOSE,RANDOM 71 mg/dL (74-106); PHOSPHOROUS 3.8 mg/dL (2.5-4.9); POTASSIUM 3.7 mmol/L (3.5-5.1); SODIUM 140 mmol/L (136-145)
--- NOTE | 2018-11-11 09:30 | PN ---
Teaching Attending Note Name of Resident: Stanislav Mckeon ATTENDING PHYSICIAN STATEMENT I saw and evaluated the patient. I reviewed the resident's note and discussed the case with the resident. I agree with the resident's findings and plan as documented. SUBJECTIVE: Patient feels better but feels like she is having aura fo possible having Seizure OBJECTIVE: Vital Signs Temperature 98.4 F 11/11/18 07:04 Pulse Rate 100 H 11/11/18 07:04 Respiratory Rate 20 11/11/18 07:04 Blood Pressure 114/62 11/11/18 07:04 O2 Sat by Pulse Oximetry (%) 100 11/10/18 20:00 Initial Vital Signs Temp Pulse Resp BP Pulse Ox 97.3 F L 70 18 102/32 L 100 11/07/18 19:45 11/07/18 19:45 11/07/18 19:45 11/07/18 19:45 11/07/18 19:45 GENERAL: NAD HEAD: Normal with no signs of trauma. EYES: EOMI Sclera Clear LUNGS: CTAB. HEART: RRR nl s1s2 ABDOMEN: NDNT EXTREMITIES: no CCE CBCD WBC 3.7 K/mm3 (4.0-10.0) L 11/11/18 06:00 RBC 3.05 M/mm3 (3.60-5.2) L 11/11/18 06:00 Hgb 9.2 GM/dL (10.7-15.3) L 11/11/18 06:00 Hct 27.7 % (32.4-45.2) L 11/11/18 06:00 MCV 91.0 fl (80-96) 11/11/18 06:00 MCHC 33.2 g/dl (32.0-36.0) 11/11/18 06:00 RDW 18.6 % (11.6-15.6) H 11/11/18 06:00 Plt Count 151 K/MM3 (134-434) 11/11/18 06:00 MPV 7.8 fl (7.5-11.1) 11/11/18 06:00 CMP Sodium 140 mmol/L (136-145) 11/11/18 06:00 Potassium 3.7 mmol/L (3.5-5.1) 11/11/18 06:00 Chloride 110 mmol/L (98-107) H 11/11/18 06:00 Carbon Dioxide 26 mmol/L (21-32) 11/11/18 06:00 Anion Gap 4 MMOL/L (8-16) L 11/11/18 06:00 BUN 6 mg/dL (7-18) L 11/11/18 06:00 Creatinine 0.4 mg/dL (0.55-1.3) L 11/11/18 06:00 Creat Clearance w eGFR > 60 (>60) 11/11/18 06:00 Random Glucose 71 mg/dL (74-106) L 11/11/18 06:00 Calcium 7.8 mg/dL (8.5-10.1) L 11/11/18 06:00 Total Bilirubin 0.2 mg/dL (0.2-1) 11/09/18 05:20 AST 8 U/L (15-37) L 11/09/18 05:20 ALT 11 U/L (13-61) L 11/09/18 05:20 Alkaline Phosphatase 21 U/L (45-117) L 11/09/18 05:20 Total Protein 5.9 g/dl (6.4-8.2) L 11/09/18 05:20 Albumin 3.0 g/dl (3.4-5.0) L 11/09/18 05:20 Current Medications Generic Name Dose Route Start Last Admin Trade Name Freq PRN Reason Stop Dose Admin Amitriptyline HCl 25 mg 11/08/18 22:00 11/10/18 22:32 Elavil - PO Not Given HS WOODROW Divalproex Sodium 1,000 mg 11/11/18 22:00 Depakote *Er* - PO HS [facility] Enoxaparin Sodium 40 mg 11/08/18 10:00 11/10/18 10:18 Lovenox - SQ 40 mg DAILY [facility] Administration Sodium Chloride 1,000 mls @ 100 mls/hr 11/08/18 00:45 11/11/18 05:48 Normal Saline - IV 100 mls/hr ASDIR [facility] Administration Lamotrigine 100 mg 11/08/18 22:00 11/10/18 21:16 Lamictal - PO 100 mg BID WO[facility] Administration Levetiracetam 1,000 mg 11/08/18 13:07 11/10/18 10:18 Keppra - PO 1,000 mg DAILY WO[facility] Administration Levetiracetam 1,500 mg 11/08/18 22:00 11/10/18 21:16 Keppra - PO 1,500 mg HS WOODROW Administration Meclizine HCl 25 mg 11/08/18 14:00 11/11/18 05:49 Antivert - PO 25 mg TID [facility] Administration Ondansetron HCl 4 mg 11/08/18 00:46 11/09/18 10:58 Zofran Injection IVPB 4 mg Q6H PRN Administration NAUSEA Pantoprazole Sodium 40 mg 11/08/18 13:45 11/10/18 10:17 Protonix - PO 40 mg DAILY WO[facility] Administration Prochlorperazine Edisylate 5 mg 11/08/18 17:42 Compazine Injection - IVPB Q6H PRN NAUSEA AND/OR VOMITING Home Medications Medication Instructions Recorded Divalproex *ER* [Depakote *ER* -] 500 mg PO HS 11/08/18 Lamotrigine [Lamictal] 100 mg PO BID 11/08/18 Levetiracetam [Keppra] 1,000 mg PO DAILY 11/08/18 levETIRAcetam [Keppra -] 1,500 mg PO HS 11/08/18 ASSESSMENT AND PLAN: 43 y/o lady with h/o vertigo and seizures who presented for vertigo # Vertigo: likely due to BPV. will continue with Meclizine , Elavil , cont IVF - No benzos due to red flags and potential side effects - team tried to teach her Eply maneuver, but she did not cooperate and declined - cont to complain of nausea but used zofran once ( 10 am yesterday), did not use compazine at all. eating all her meals and not vomiting # H/o seizures: cont her home meds. she remembered that she takes depakote 1000 in HS not 500. gave 500 this morning then 500 this evening, then starting tomorrow she goes onher routine schedule 1000 mg HS # hypotension : improved. will increase her IVF, PPI #Leukopenia and neutropenia .most likely due to keppra . will call her neurologist and verify the level of ANC prior to this admission or whether we need to lower the dose of Keppra. ANC 1200 , repeat CBC with diff tomorrow . if worsening , can get heme , otherwise monitor as out pt DVT px : possible dc tomorrow if sx improves and if she works with PT
[2018-11-11] MEDS: levETIRAcetam 500 MG TABLET (FP) PO SCH ×2 (10:23→22:15)
[2018-11-11] MEDS: ENOXAPARIN NA (PORCINE) 40 MG/0.4 ML DISP.SYRIN SQ SCH (10:23)
[2018-11-11] MEDS: lamoTRIgine 100 MG TABLET (FP) PO SCH ×2 (10:24→22:16)
[2018-11-11] MEDS: PANTOPRAZOLE 40 MG TABLET (FP) PO SCH (10:24)
--- NOTE | 2018-11-11 11:35 | PN ---
Physical Exam: SUBJECTIVE: Patient seen and examined at bedside. Endorses nausea and dizziness. OBJECTIVE: Vital Signs Period Temp Pulse Resp BP Sys/Kumar Pulse Ox Last 24 Hr 98.2 F-98.8 F 64-100 18-20 89-114/47-78 100 GENERAL: AAOx3, NAD HEAD: Atraumatic/Normocephalic EYES: EOMI Sclera Clear LUNGS: Clear to auscultation b/l HEART: rrr nl s2s2 EXTREMITIES: no CCE Laboratory Results - last 24 hr 11/11/18 11/11/18 06:00 06:00 WBC 3.7 L RBC 3.05 L Hgb 9.2 L Hct 27.7 L MCV 91.0 MCH 30.2 MCHC 33.2 RDW 18.6 H Plt Count 151 MPV 7.8 Absolute Neuts (auto) 0.8 L Neutrophils % 21.2 L D Lymphocytes % 59.4 H Monocytes % 17.0 H Eosinophils % 2.0 Basophils % 0.4 Nucleated RBC % 0 Sodium 140 Potassium 3.7 Chloride 110 H Carbon Dioxide 26 Anion Gap 4 L BUN 6 L Creatinine 0.4 L Creat Clearance w eGFR > 60 Random Glucose 71 L Calcium 7.8 L Phosphorus 3.8 Magnesium 2.0 Active Medications Generic Name Dose Route Start Last Admin Trade Name Freq PRN Reason Stop Dose Admin Amitriptyline HCl 25 mg 11/08/18 22:00 11/10/18 22:32 Elavil - PO Not Given HS WOODROW Divalproex Sodium 1,000 mg 11/11/18 22:00 Depakote *Er* - PO HS WO[facility] Enoxaparin Sodium 40 mg 11/08/18 10:00 11/11/18 10:23 Lovenox - SQ 40 mg DAILY [facility] Administration Sodium Chloride 1,000 mls @ 100 mls/hr 11/08/18 00:45 11/11/18 05:48 Normal Saline - IV 100 mls/hr ASDIR [facility] Administration Lamotrigine 100 mg 11/08/18 22:00 11/11/18 10:24 Lamictal - PO 100 mg BID [facility] Administration Levetiracetam 1,000 mg 11/08/18 13:07 11/11/18 10:23 Keppra - PO 1,000 mg DAILY [facility] Administration Levetiracetam 1,500 mg 11/08/18 22:00 11/10/18 21:16 Keppra - PO 1,500 mg HS [facility] Administration Meclizine HCl 25 mg 11/08/18 14:00 11/11/18 05:49 Antivert - PO 25 mg TID [facility] Administration Ondansetron HCl 4 mg 11/08/18 00:46 11/09/18 10:58 Zofran Injection IVPB 4 mg Q6H PRN Administration NAUSEA Pantoprazole Sodium 40 mg 11/08/18 13:45 11/11/18 10:24 Protonix - PO 40 mg DAILY [facility] Administration Prochlorperazine Edisylate 5 mg 11/08/18 17:42 Compazine Injection - IVPB Q6H PRN NAUSEA AND/OR VOMITING ASSESSMENT/PLAN: Patient is a 43 year old female, w/ significant PMHx vertigo, Anorexia, admission at [facility], who presented to the ED with, c/o dizziness described as room-spinning with associated nausea and NBNB vomiting. # Vertigo -Head CT negative -IV fluids. Blood cultures drawn today in light of recent hypotension. per prelim report--> No growth obtained. -Zofran for nausea -Ativan x1 in ED -Meclzine 25 TID -Dr Cesar on board -urine tox negative -eply maneuver attempted to be taught to pt but she did not cooperate and declined -EKG with NSR and no QTC prolongation -Elavil # H/O Seizure Keppra, Lamictal, Depakote 1000 HS #Anorexia BMI 16.3 Previous history of anorexia Psych consult Dietary consult #Neutropenia Heme consult. Recs appreciated Absolute neutrophils 0.8. Neutrophil % 21.2 # FEN NS @ 200 CC /hr increased from 100cc/hr Monitor electrolytes regular diet # proph lovenox 40 sq daily # Dispo med surg Visit type - Emergency Visit Emergency Visit: Yes ED Registration Date: 11/07/18 Care time: The patient presented to the Emergency Department on the above date and was hospitalized for further evaluation of their emergent condition. - New Patient This patient is new to me today: No - Critical Care Critical Care patient: No - Discharge Referral Referred to [facility] Med P.C.: No
[2018-11-11] MEDS: ONDANSETRON 4 MG/2 ML VIAL IVPB PRN (13:40)
--- NOTE | 2018-11-11 18:20 | CONSULT ---
Consult Consult Specialty:: Hematology-Oncology Referred by:: Hospitalist team Reason for Consultation:: anemia /neutropenia - History of Present Illness Chief Complaint: Patient presented with vertigo, nausea, emesis. 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 (year[place] ancestry- born in [facility] [[email or web address] Home Medications - Allergies Allergies/Adverse Reactions: Allergies Allergy/AdvReac Type Severity Reaction Status Date / Time No Known Allergies Allergy Verified 11/07/18 19:48 - Home Medications Home Medications: Ambulatory Orders Divalproex *ER* [Depakote *ER* -] 500 mg PO HS 11/08/18 Lamotrigine [Lamictal] 100 mg PO BID 11/08/18 Levetiracetam [Keppra] 1,000 mg PO DAILY 11/08/18 levETIRAcetam [Keppra -] 1,500 mg PO HS 11/08/18 Family Disease History - Family Disease History Family Disease History: CA: Grandparent (MGF,MGGF- both with liver cancer ), Father (? type), Mother (stomach cancer) Review of Systems - Review of Systems Constitutional: reports: Unintentional Wgt. Loss (1 1/2 year 10 lb weight loss - none recent), Weakness. denies: Chills, Fever Eyes: reports: Blurred Vision, Other (blurry vision right eye) HENT: denies: Difficult Swallowing, Epistaxis, Hearing Loss, Mouth Swelling, Throat Pain, Ringing in Ears Neck: denies: Stiffness, Swollen Glands, Tenderness Cardiovascular: reports: Shortness of Breath. denies: Chest Pain Respiratory: reports: Cough, SOB, SOB on Exertion Gastrointestinal: reports: Abdominal Pain, Vomiting. denies: Constipation, Diarrhea Genitourinary: denies: Dysuria, Flank Pain, Hematuria Breasts: reports: No Symptoms Reported Musculoskeletal: reports: Back Pain Neurological: reports: Dizziness, Headache, Weakness Endocrine: denies: Excessive Sweating Hematology/Lymphatic: denies: Easily Bruised, Excessive Bleeding, Swollen Glands Psychiatric: reports: No Symptoms Physical Exam Vital Signs: Vital Signs Temperature 98.4 F 11/11/18 17:10 Pulse Rate 63 11/11/18 17:10 Respiratory Rate 20 11/11/18 17:10 Blood Pressure 88/55 L 11/11/18 17:10 O2 Sat by Pulse Oximetry (%) 100 11/11/18 12:00 Constitutional: Yes: Anxious, Mild Distress Eyes: Yes: PERRL. No: Diplopia, Ptosis, Sclera Icterus HENT: Yes: Atraumatic, Normocephalic, Other (toruspallatini). No: Hoarseness, Tonsillar Exudate Neck: Yes: Supple, Trachea Midline. No: Lymphadenopathy, Tenderness, Thyromegaly Cardiovascular: Yes: Regular Rate and Rhythm Respiratory: Yes: CTA Bilaterally Gastrointestinal: Yes: Normal Bowel Sounds, Soft. No: Hepatomegaly, Splenomegaly Renal/: No: CVA Tenderness - Left, CVA Tenderness - Right Breast(s): Yes: Other (fibrocystic with no dominant masses) Musculoskeletal: Yes: Back Pain. No: Joint Swelling Extremities: No: Calf Tenderness Edema: No Integumentary: No: Bruising, Jaundice, Pressure Ulcer, Rash Neurological: Yes: WNL ...Motor Strength: WNL Psychiatric: Yes: WNL Labs: CBC, BMP 11/11/18 06:00 11/11/18 06:00
--- NOTE | 2018-11-11 18:57 | PN ---
Progress Note (short form) - Note Progress Note: Continuation of consult Problem: Neutropenia Home meds- lamictal, keppra, depokoate do not cause leukopenia. Protonix and compazine have been reported to cause leukopenia-not specifically neutropenia. ( neutropenia has worsened in hospital) Patient states she has a thyroid problem- to check on TFT's. Patient took drugs including snorting cocaine up until mid- 30's so would obtain HIV. Will do sono of liver /spleen. if non revealing will need flow and possibly bone marrow. Problem - Anemia for screening tests to begin.
[2018-11-11] MEDS: AMITRIPTYLINE HCL 25 MG TABLET (FP) PO SCH ×2 (22:14→22:23)
[2018-11-11] MEDS: DIVALPROEX NA *ER* EXTEND REL 500 MG TABLET.SA (FP) PO SCH (22:15)
[2018-11-12] MEDS ORDERED: PT OWN MED DRAWER 7, Y5N ONE ×4 (05:52→21:20)
[2018-11-12] MEDS: MECLIZINE HCL 25 MG TABLET (FP) PO SCH ×3 (05:54→21:33)
[2018-11-12 08:19] LABS: BASO % 0.7 % (0-2.0); EOS % 2.5 % (0-4.5); HEMATOCRIT 26.3 % (32.4-45.2); HEMOGLOBIN 8.8 GM/dL (10.7-15.3); LYMPH % 58.7 % (8-40); MCH 30.5 pg (25.7-33.7); MCHC 33.5 g/dl (32.0-36.0); MEAN CELL VOLUME 91.1 fl (80-96); MEAN PLT VOLUME 7.5 fl (7.5-11.1); MONO % 15.3 % (3.8-10.2); NEUT % 22.8 % (42.8-82.8); PLATELET COUNT 135 K/MM3 (134-434); RBC 2.89 M/mm3 (3.60-5.2); RDW 18.8 % (11.6-15.6); WHITE BLOOD COUNT 3.7 K/mm3 (4.0-10.0)
[2018-11-12 08:51] LABS: ANION GAP 2 MMOL/L (8-16); BLOOD UREA NITROGEN 6 mg/dL (7-18); CALCIUM 7.9 mg/dL (8.5-10.1); CHLORIDE 114 mmol/L (98-107); CO2 25 mmol/L (21-32); CREATININE 0.4 mg/dL (0.55-1.3); GLUCOSE,RANDOM 75 mg/dL (74-106); LDH 100 U/L (84-246); MAGNESIUM 2.1 mg/dL (1.8-2.4); PHOSPHOROUS 3.1 mg/dL (2.5-4.9); POTASSIUM 3.9 mmol/L (3.5-5.1); SODIUM 142 mmol/L (136-145)
[2018-11-12] MEDS: lamoTRIgine 100 MG TABLET (FP) PO SCH ×2 (10:35→21:33)
[2018-11-12] MEDS: levETIRAcetam 500 MG TABLET (FP) PO SCH ×2 (10:35→21:33)
[2018-11-12] MEDS: ENOXAPARIN NA (PORCINE) 40 MG/0.4 ML DISP.SYRIN SQ SCH (10:35)
[2018-11-12] MEDS: SODIUM CHLORIDE 1,000 ML IV SCH ×2 (10:35→14:29)
--- NOTE | 2018-11-12 15:07 | PN ---
Physical Exam: SUBJECTIVE: Patient seen and examined at bedside. No acute events overnight. OBJECTIVE: Vital Signs Period Temp Pulse Resp BP Sys/Kumar Pulse Ox Last 24 Hr 98.0 F-98.4 F 63-75 18-20 84-96/43-55 100 GENERAL: No acute distress HEAD: Atraumatic/Normocephalic EYES: EOMI Sclera Clear LUNGS: Clear to auscultation b/l HEART: rrr nl s2s2 EXTREMITIES: no CCE Laboratory Results - last 24 hr 11/12/18 11/12/18 11/12/18 06:00 06:00 06:00 WBC 3.7 L RBC 2.89 L Hgb 8.8 L Hct 26.3 L MCV 91.1 MCH 30.5 MCHC 33.5 RDW 18.8 H Plt Count 135 MPV 7.5 Absolute Neuts (auto) 0.8 L Neutrophils % 22.8 L Lymphocytes % 58.7 H Monocytes % 15.3 H Eosinophils % 2.5 Basophils % 0.7 Nucleated RBC % 0 Retic Count 1.42 Sodium 142 Potassium 3.9 Chloride 114 H Carbon Dioxide 25 Anion Gap 2 L BUN 6 L Creatinine 0.4 L Creat Clearance w eGFR > 60 Random Glucose 75 Calcium 7.9 L Phosphorus 3.1 Magnesium 2.1 Ferritin LD Total 100 Vitamin B12 Serum Folate TSH 3.38 Free T4 11/12/18 11/12/18 11/12/18 06:00 06:00 06:00 WBC RBC Hgb Hct MCV MCH MCHC RDW Plt Count MPV Absolute Neuts (auto) Neutrophils % Lymphocytes % Monocytes % Eosinophils % Basophils % Nucleated RBC % Retic Count Sodium Potassium Chloride Carbon Dioxide Anion Gap BUN Creatinine Creat Clearance w eGFR Random Glucose Calcium Phosphorus Magnesium Ferritin 4.1 L LD Total Vitamin B12 481 Serum Folate 10 TSH Free T4 0.71 L Active Medications Generic Name Dose Route Start Last Admin Trade Name Freq PRN Reason Stop Dose Admin Amitriptyline HCl 25 mg 11/08/18 22:00 11/11/18 22:23 Elavil - PO Not Given HS WO[facility]ROW Divalproex Sodium 1,000 mg 11/11/18 22:00 11/11/18 22:15 Depakote *Er* - PO 1,000 mg HS [facility] Administration Enoxaparin Sodium 40 mg 11/08/18 10:00 11/12/18 10:35 Lovenox - SQ 40 mg DAILY [facility] Administration Sodium Chloride 1,000 mls @ 200 mls/hr 11/11/18 13:19 11/12/18 14:29 Normal Saline - IV 200 mls/hr ASDIR [facility] Administration Lamotrigine 100 mg 11/08/18 22:00 11/12/18 10:35 Lamictal - PO 100 mg BID [facility] Administration Levetiracetam 1,000 mg 11/08/18 13:07 11/12/18 10:35 Keppra - PO 1,000 mg DAILY [facility] Administration Levetiracetam 1,500 mg 11/08/18 22:00 11/11/18 22:15 Keppra - PO 1,500 mg HS [facility] Administration Meclizine HCl 25 mg 11/08/18 14:00 11/12/18 13:42 Antivert - PO 25 mg TID [facility] Administration Ondansetron HCl 4 mg 11/08/18 00:46 11/11/18 13:40 Zofran Injection IVPB 4 mg Q6H PRN Administration NAUSEA Prochlorperazine Edisylate 5 mg 11/08/18 17:42 Compazine Injection - IVPB Q6H PRN NAUSEA AND/OR VOMITING ASSESSMENT/PLAN: Patient is a 43 year old female, w/ significant PMHx vertigo, Anorexia, admission at [facility], who presented to the ED with, c/o dizziness described as room-spinning with associated nausea and NBNB vomiting. # Vertigo -Head CT negative -IV fluids. Blood cultures drawn today in light of recent hypotension. per prelim report--> No growth obtained. -Zofran for nausea -Ativan x1 in ED -Meclzine 25 TID -Dr Cesar on board -urine tox negative -eply maneuver attempted to be taught to pt but she did not cooperate and declined -EKG with NSR and no QTC prolongation -Elavil # H/O Seizure Keppra, Lamictal, Depakote 1000 HS #Anorexia BMI 16.3 Previous history of anorexia Psych on board- Dr Ferrer. No psych meds recommended at this juncture. Dietary consult #Neutropenia Heme on board- Dr Martinez. Liver Sono. Will do cytometry and Bone marrow biopsy if sono unrevealingg. Absolute neutrophils 0.8. Neutrophil % 22.8 # FEN NS@100cc/hr Monitor electrolytes regular diet # proph lovenox 40 sq daily # Dispo med surg Visit type - Emergency Visit Emergency Visit: Yes ED Registration Date: 11/11/18 Care time: The patient presented to the Emergency Department on the above date and was hospitalized for further evaluation of their emergent condition. - New Patient This patient is new to me today: No - Critical Care Critical Care patient: No - Discharge Referral Referred to [facility] Med P.C.: No
--- NOTE | 2018-11-12 16:09 | CON.PSY ---
Psychiatry Consult Chief Complaint: 43 Year old female with ba history of major depressice disorder seen for Psych eval. Also hasa history of Seizure Disorder. patient reports no ongoing depression and has stopped her anti depressant about a year ago. - Previous Psychiatric Treatment Outpatient: None Inpatient: 2 or more prior admissions - Previous Substance Abuse Treatment Outpatient: None Inpatient: None - Reason for Previous Treatment Reason for Previous Treatment: Major Depression - Current Medications Current Medications: Active Medications Divalproex Sodium (Depakote *Er* -) 1,000 mg PO HS [facility] Last Admin: 11/11/18 22:15 Dose: 1,000 mg Enoxaparin Sodium (Lovenox -) 40 mg SQ DAILY [facility] Last Admin: 11/12/18 10:35 Dose: 40 mg Sodium Chloride (Normal Saline -) 1,000 mls @ 200 mls/hr IV ASDIR [facility] Last Admin: 11/12/18 14:29 Dose: 200 mls/hr Lamotrigine (Lamictal -) 100 mg PO BID [facility] Last Admin: 11/12/18 10:35 Dose: 100 mg Levetiracetam (Keppra -) 1,000 mg PO DAILY [facility] Last Admin: 11/12/18 10:35 Dose: 1,000 mg Levetiracetam (Keppra -) 1,500 mg PO HS [facility] Last Admin: 11/11/18 22:15 Dose: 1,500 mg Meclizine HCl (Antivert -) 25 mg PO TID [facility] Last Admin: 11/12/18 13:42 Dose: 25 mg Ondansetron HCl (Zofran Injection) 4 mg IVPB Q6H PRN PRN Reason: NAUSEA Last Admin: 11/11/18 13:40 Dose: 4 mg Prochlorperazine Edisylate (Compazine Injection -) 5 mg IVPB Q6H PRN PRN Reason: NAUSEA AND/OR VOMITING - Allergies Allergies: Allergies Allergy/AdvReac Type Severity Reaction Status Date / Time No Known Allergies Allergy Verified 11/07/18 19:48 - Current Living Status Usual Living Arrangement: Alone - Affect Affect: Full Range - Mood Mood: Euthymic - Speech/Language Expressive: Coherent - Psychomotor Activity Psychomotor Activity: Normal - Thought Process Thought Process: Intact - Thought Content Hallucinations: Absent Delusions: Absent - Self Perception Self Perception: No Impairment - Cognition Attention: Alert Orientation: Time Memory, Immediate Recall: Intact Memory, Short Term: 3/3 Memory, Remote with Promptin/3 - Concentration Serial Sevens Intact: Yes Simple Calculations Intact: Yes - Abstraction Proverb Interpretation: Intact Judgement: Intact - Insight Insight: Intact - Impulse Control Impulse Control: Good Control - Suicidal Ideation Suicidal Ideation: No - Homicidal Ideation Homicidal Ideation: No Assessment/Plan 1) No psych meds needed at this time.
[2018-11-12] MEDS ORDERED: ACETAMINOPHEN 650 MG/20.3 ML ORAL SOLUTION (CUPS) PO PRN (19:09)
[2018-11-12] MEDS ORDERED: ACETAMINOPHEN 325 MG TABLET (FP) PO PRN (19:12)
[2018-11-12] MEDS ORDERED: ACETAMINOPHEN 325 MG TABLET (FP) PO ONE (19:30)
[2018-11-12] MEDS ORDERED: SODIUM CHLORIDE 1,000 ML IV SCH (20:15)
--- NOTE | 2018-11-12 21:01 | PN ---
Teaching Attending Note Name of Resident: Stanislav Mckeon ATTENDING PHYSICIAN STATEMENT I saw and evaluated the patient. I reviewed the resident's note and discussed the case with the resident. I agree with the resident's findings and plan as documented. SUBJECTIVE: OBJECTIVE: Vital Signs Temperature 98.1 F 11/12/18 20:30 Pulse Rate 87 11/12/18 20:30 Respiratory Rate 18 11/12/18 20:30 Blood Pressure 101/63 11/12/18 20:30 O2 Sat by Pulse Oximetry (%) 100 11/11/18 20:00 GENERAL: NAD HEAD: Normal with no signs of trauma. EYES: EOMI Sclera Clear LUNGS: CTAB. HEART: RRR nl s1s2 ABDOMEN: NDNT EXTREMITIES: no CCE CBCD WBC 3.7 K/mm3 (4.0-10.0) L 11/12/18 06:00 RBC 2.89 M/mm3 (3.60-5.2) L 11/12/18 06:00 Hgb 8.8 GM/dL (10.7-15.3) L 11/12/18 06:00 Hct 26.3 % (32.4-45.2) L 11/12/18 06:00 MCV 91.1 fl (80-96) 11/12/18 06:00 MCHC 33.5 g/dl (32.0-36.0) 11/12/18 06:00 RDW 18.8 % (11.6-15.6) H 11/12/18 06:00 Plt Count 135 K/MM3 (134-434) 11/12/18 06:00 MPV 7.5 fl (7.5-11.1) 11/12/18 06:00 CMP Sodium 142 mmol/L (136-145) 11/12/18 06:00 Potassium 3.9 mmol/L (3.5-5.1) 11/12/18 06:00 Chloride 114 mmol/L (98-107) H 11/12/18 06:00 Carbon Dioxide 25 mmol/L (21-32) 11/12/18 06:00 Anion Gap 2 MMOL/L (8-16) L 11/12/18 06:00 BUN 6 mg/dL (7-18) L 11/12/18 06:00 Creatinine 0.4 mg/dL (0.55-1.3) L 11/12/18 06:00 Creat Clearance w eGFR > 60 (>60) 11/12/18 06:00 Random Glucose 75 mg/dL (74-106) 11/12/18 06:00 Calcium 7.9 mg/dL (8.5-10.1) L 11/12/18 06:00 Total Bilirubin 0.2 mg/dL (0.2-1) 11/09/18 05:20 AST 8 U/L (15-37) L 11/09/18 05:20 ALT 11 U/L (13-61) L 11/09/18 05:20 Alkaline Phosphatase 21 U/L (45-117) L 11/09/18 05:20 Total Protein 5.9 g/dl (6.4-8.2) L 11/09/18 05:20 Albumin 3.0 g/dl (3.4-5.0) L 11/09/18 05:20 Current Medications Generic Name Dose Route Start Last Admin Trade Name Freq PRN Reason Stop Dose Admin Acetaminophen 650 mg 11/12/18 19:09 Tylenol Oral Solution - PO Q6H PRN pain scale 1-5 Divalproex Sodium 1,000 mg 11/11/18 22:00 11/11/18 22:15 Depakote *Er* - PO 1,000 mg HS [facility] Administration Enoxaparin Sodium 40 mg 11/08/18 10:00 11/12/18 10:35 Lovenox - SQ 40 mg DAILY [facility] Administration Sodium Chloride 1,000 mls @ 100 mls/hr 11/12/18 20:15 Normal Saline - IV ASDIR [facility] Lamotrigine 100 mg 11/08/18 22:00 11/12/18 10:35 Lamictal - PO 100 mg BID [facility] Administration Levetiracetam 1,000 mg 11/08/18 13:07 11/12/18 10:35 Keppra - PO 1,000 mg DAILY [facility] Administration Levetiracetam 1,500 mg 11/08/18 22:00 11/11/18 22:15 Keppra - PO 1,500 mg HS [facility] Administration Meclizine HCl 25 mg 11/08/18 14:00 11/12/18 13:42 Antivert - PO 25 mg TID [facility] Administration Ondansetron HCl 4 mg 11/08/18 00:46 11/11/18 13:40 Zofran Injection IVPB 4 mg Q6H PRN Administration NAUSEA Prochlorperazine Edisylate 5 mg 11/08/18 17:42 Compazine Injection - IVPB Q6H PRN NAUSEA AND/OR VOMITING Home Medications Medication Instructions Recorded LaMICtal 100 mg AM 04/17/13 LamoTRIgine [LaMICtal] 150 mg PO HS 04/17/13 Levetiracetam [Keppra] 1,500 mg PO BID #28 tablet 04/17/13 Phenytoin Na Extended [Dilantin -] 100 mg PO HS 04/17/13 Phenytoin Na Extended [Dilantin -] 200 mg PO AM 04/17/13 levETIRAcetam [Keppra] 1,500 mg PO BID 04/17/13 Divalproex *ER* [Depakote *ER* -] 500 mg PO HS 11/08/18 Lamotrigine [Lamictal] 100 mg PO BID 11/08/18 Levetiracetam [Keppra] 1,000 mg PO DAILY 11/08/18 levETIRAcetam [Keppra -] 1,500 mg PO HS 11/08/18 Laboratory Tests 11/07/18 11/09/18 11/09/18 20:12 05:20 16:00 WBC 3.8 L 3.9 L 3.5 L Absolute Neuts (auto) 2.6 0.7 L 1.2 L Neutrophils % 11/10/18 11/11/18 11/12/18 07:45 06:00 06:00 WBC 3.7 L 3.7 L 3.7 L Absolute Neuts (auto) 0.8 L 0.8 L Neutrophils % 21.2 L D 22.8 L ASSESSMENT AND PLAN: 43 y/o lady with h/o vertigo and seizures who presented for vertigo # Vertigo: likely due to BPV. will continue with Meclizine , Elavil , cont IVF - No benzos due to red flags and potential side effects - team tried to teach her Eply maneuver, but she did not cooperate and declined - cont to complain of nausea but used zofran once ( 10 am yesterday), did not use compazine at all. eating all her meals and not vomiting # H/o seizures: cont her home meds. # hypotension : improved. continue IVF, PPI #Leukopenia and neutropenia .improving , DVT px :Lovenox
[2018-11-12] MEDS: DIVALPROEX NA *ER* EXTEND REL 500 MG TABLET.SA (FP) PO SCH (21:33)
[2018-11-12] MEDS: ONDANSETRON 4 MG/2 ML VIAL IVPB PRN (23:46)
[2018-11-13 04:14] LABS: SERUM IRON SATURATION 8 % (15-55); TOTAL IRON BINDING CAPACITY 266 ug/dL (250-450); UIBC 244 ug/dL (131-425)
[2018-11-13] MEDS ORDERED: PT OWN MED DRAWER 7, Y5N ONE ×4 (05:39→13:14)
[2018-11-13] MEDS: MECLIZINE HCL 25 MG TABLET (FP) PO SCH ×4 (05:41→14:13)
[2018-11-13] MEDS: ONDANSETRON 4 MG/2 ML VIAL IVPB PRN (07:36)
[2018-11-13 07:37] LABS: BASO % 0.6 % (0-2.0); EOS % 2.8 % (0-4.5); HEMATOCRIT 26.4 % (32.4-45.2); HEMOGLOBIN 8.8 GM/dL (10.7-15.3); LYMPH % 58.9 % (8-40); MCH 30.5 pg (25.7-33.7); MCHC 33.2 g/dl (32.0-36.0); MEAN CELL VOLUME 91.8 fl (80-96); MEAN PLT VOLUME 7.8 fl (7.5-11.1); MONO % 15.4 % (3.8-10.2); NEUT % 22.3 % (42.8-82.8); PLATELET COUNT 144 K/MM3 (134-434); RBC 2.88 M/mm3 (3.60-5.2); RDW 19.1 % (11.6-15.6)
[2018-11-13 08:06] LABS: ANION GAP 7 MMOL/L (8-16); BLOOD UREA NITROGEN 8 mg/dL (7-18); CALCIUM 7.9 mg/dL (8.5-10.1); CHLORIDE 111 mmol/L (98-107); CO2 24 mmol/L (21-32); CREATININE 0.5 mg/dL (0.55-1.3); GLUCOSE,RANDOM 72 mg/dL (74-106); MAGNESIUM 1.8 mg/dL (1.8-2.4); PHOSPHOROUS 3.6 mg/dL (2.5-4.9); SODIUM 141 mmol/L (136-145)
[2018-11-13 09:38] LABS: ANISOCYTOSIS 2+; MACROCYTOSIS 0; OVALOCYTE 1+; PLATELET ESTIMATE DECREASED; TEAR DROP CELLS 1+
[2018-11-13] MEDS ORDERED: SODIUM CHLORIDE 250 ML IV STA (09:59)
[2018-11-13] MEDS: levETIRAcetam 500 MG TABLET (FP) PO SCH (10:16)
[2018-11-13] MEDS: ENOXAPARIN NA (PORCINE) 40 MG/0.4 ML DISP.SYRIN SQ SCH (10:16)
[2018-11-13] MEDS: lamoTRIgine 100 MG TABLET (FP) PO SCH (10:17)
[2018-11-13] MEDS ORDERED: ONDANSETRON *ODT* 4 MG TABLET SL ONE (13:09)
--- NOTE | 2018-11-13 14:33 | DS ---
Physical Exam: SUBJECTIVE: Patient seen and examined at bedside. No acute events overnight. OBJECTIVE: Vital Signs Period Temp Pulse Resp BP Sys/Kumar Pulse Ox Last 24 Hr 97.7 F-98.7 F 59-112 18-20 86-131/50-82 PHYSICAL EXAM GENERAL: No acute distress HEAD: Atraumatic/Normocephalic EYES: EOMI Sclera Clear LUNGS: Clear to auscultation b/l HEART: rrr nl s2s2 EXTREMITIES: no CCE LABS Laboratory Results - last 24 hr 11/12/18 11/13/18 11/13/18 06:00 07:00 07:00 WBC 4.0 RBC 2.88 L Hgb 8.8 L Hct 26.4 L MCV 91.8 MCH 30.5 MCHC 33.2 RDW 19.1 H Plt Count 144 MPV 7.8 Absolute Neuts (auto) 0.9 L Neutrophils % 22.3 L Neutrophils % (Manual) 20.8 L Band Neutrophils % 0.0 Lymphocytes % 58.9 H Lymphocytes % (Manual) 61.4 H Monocytes % 15.4 H Monocytes % (Manual) 10 Eosinophils % 2.8 Eosinophils % (Manual) 3.0 Basophils % 0.6 Basophils % (Manual) 0.0 Myelocytes % (Man) 0 Promyelocytes % (Man) 0 Blast Cells % (Manual) 0 Nucleated RBC % 0 Metamyelocytes 0 Hypochromia 0 Platelet Estimate Decreased Platelet Comment Present Polychromasia 1+ Poikilocytosis 2+ Anisocytosis 2+ Microcytosis 2+ Macrocytosis 0 Tear Drop Cells 1+ Ovalocytes 1+ Victor Cells 2+ Sodium 141 Potassium 4.0 Chloride 111 H Carbon Dioxide 24 Anion Gap 7 L BUN 8 Creatinine 0.5 L Creat Clearance w eGFR 134.66 Random Glucose 72 L Calcium 7.9 L Phosphorus 3.6 Magnesium 1.8 Iron 22 L TIBC 266 Iron Saturation 8 L HOSPITAL COURSE: Date of Admission:11/11/18 Patient is a 43 year old female, w/ significant PMHx vertigo, Anorexia, admission at [facility], who presented to the ED with, c/o dizziness described as room-spinning with associated nausea and NBNB vomiting. Pt underwent CT and MRI of her head which did not reveal any acute pathology. Pt was on Meclizine, Keppra, Depokote, Lamictal. Pt was also found to be neutropenic during her admission with an absolute neutrophil count of 0.7 and a Neutrophil % of 19.1 at it's shari. Hematology was consulted who recommended a liver sonogram followed by flow cytometry and possibly bone marrow biopsy if the sonogram was unrevealing. Pt's sonogram revealed coarse echotexture and possible mild fatty infiltration. Pt's [facility] neurologist was contacted and informed myself that patient's neutropenia was present in December of 2017. Pt was discharged with a hematology referral to further work her neutropenia up. Date of Discharge: 11/13/18 Minutes to complete discharge: 35 Discharge Summary Reason For Visit: VERTIGO,NAUSEA AND VOMITING Condition: Improved - Instructions Diet, Activity, Other Instructions: You presented to the hospital due to lightheadedness and nausea. You were found to have a very low white blood cell count called Neutropenia, as per your doctor in [facility] , you had It before as well , but needs further investigation. is very important for you to follow up with the blood doctor, Dr Ulisses Martinez. If you are not able to see Dr. Martinez please ask your doctor a referral for a supervisor laboratory .A referral has been provided to you in your discharge papers. You may need a bone marrow biopsy as well as other blood tests to further work up the cause of your low white blood cell count. You will need to repeat a blood test called a CBC with differentials within 1 week. Please follow up with your primary care doctor for this. Please follow up with your Neurologist in 1 week. Please continue to take all of your home medications as previously prescribed to you. Please return to the Emergency Department immediately if you begin to experience chest pain, shortness of breath, nausea/vomiting, fevers, or any other abnormal symptoms/. Referrals: Ulisses Martinez MD [Staff Physician] - 1 Week Disposition: HOME - Home Medications Comprehensive Discharge Medication List: Ambulatory Orders Lamotrigine [Lamictal] 100 mg PO BID 11/08/18 Levetiracetam [Keppra] 1,000 mg PO DAILY 11/08/18 levETIRAcetam [Keppra -] 1,500 mg PO HS 11/08/18 Divalproex *ER* [Depakote *ER* -] 1,000 mg PO HS #30 tablet.sa 11/13/18 Meclizine HCl 25 mg PO TID PRN #12 tab.chew 11/13/18 This patient is new to me today: No Emergency Visit: Yes ED Registration Date: 11/11/18 Care time: The patient presented to the Emergency Department on the above date and was hospitalized for further evaluation of their emergent condition. Critical Care patient: No - Discharge Referral Referred to [facility] Med P.C.: No
[2018-11-13 14:40] VITALS: BP 95/66; PULSE 78; TEMP 98
--- NOTE | 2018-11-13 19:32 | PN ---
Teaching Attending Note ATTENDING PHYSICIAN STATEMENT I saw and evaluated the patient. I reviewed the resident's note and discussed the case with the resident. I agree with the resident's findings and plan as documented. SUBJECTIVE: OBJECTIVE: Vital Signs Temperature 98.0 F 11/13/18 09:00 Pulse Rate 78 11/13/18 13:00 Respiratory Rate 20 11/13/18 13:00 Blood Pressure 95/66 11/13/18 13:00 O2 Sat by Pulse Oximetry (%) 99 11/13/18 09:00 GENERAL: NAD HEAD: Normal with no signs of trauma. EYES: EOMI Sclera Clear LUNGS: CTAB. HEART: RRR nl s1s2 ABDOMEN: NDNT EXTREMITIES: no CCE CBCD WBC 4.0 K/mm3 (4.0-10.0) 11/13/18 07:00 RBC 2.88 M/mm3 (3.60-5.2) L 11/13/18 07:00 Hgb 8.8 GM/dL (10.7-15.3) L 11/13/18 07:00 Hct 26.4 % (32.4-45.2) L 11/13/18 07:00 MCV 91.8 fl (80-96) 11/13/18 07:00 MCHC 33.2 g/dl (32.0-36.0) 11/13/18 07:00 RDW 19.1 % (11.6-15.6) H 11/13/18 07:00 Plt Count 144 K/MM3 (134-434) 11/13/18 07:00 MPV 7.8 fl (7.5-11.1) 11/13/18 07:00 CMP Sodium 141 mmol/L (136-145) 11/13/18 07:00 Potassium 4.0 mmol/L (3.5-5.1) 11/13/18 07:00 Chloride 111 mmol/L (98-107) H 11/13/18 07:00 Carbon Dioxide 24 mmol/L (21-32) 11/13/18 07:00 Anion Gap 7 MMOL/L (8-16) L 11/13/18 07:00 BUN 8 mg/dL (7-18) 11/13/18 07:00 Creatinine 0.5 mg/dL (0.55-1.3) L 11/13/18 07:00 Creat Clearance w eGFR 134.66 (>60) 11/13/18 07:00 Random Glucose 72 mg/dL (74-106) L 11/13/18 07:00 Calcium 7.9 mg/dL (8.5-10.1) L 11/13/18 07:00 Total Bilirubin 0.2 mg/dL (0.2-1) 11/09/18 05:20 AST 8 U/L (15-37) L 11/09/18 05:20 ALT 11 U/L (13-61) L 11/09/18 05:20 Alkaline Phosphatase 21 U/L (45-117) L 11/09/18 05:20 Total Protein 5.9 g/dl (6.4-8.2) L 11/09/18 05:20 Albumin 3.0 g/dl (3.4-5.0) L 11/09/18 05:20 Home Medications Medication Instructions Recorded Lamotrigine [Lamictal] 100 mg PO BID 11/08/18 Levetiracetam [Keppra] 1,000 mg PO DAILY 11/08/18 levETIRAcetam [Keppra -] 1,500 mg PO HS 11/08/18 Divalproex *ER* [Depakote *ER* -] 1,000 mg PO HS #30 tablet.sa 11/13/18 Meclizine HCl 25 mg PO TID PRN #12 tab.chew 11/13/18 ASSESSMENT AND PLAN:
== END 2018-11-13 14:31 | disposition home or self-care (01) | DRG 149 ==
LOC: JER 19:44 → JERBED 23:26 → J8W 11-08 04:32 → OBSVTOIN 11-11 17:26
PROVIDERS: ADMIT Internal Medicine; ATTEND Internal Medicine
DX: H81.12 Benign paroxysmal vertigo, left ear (principal); Z68.1 Body mass index [BMI] 19.9 or less, adult; I95.9 Hypotension, unspecified; G40.909 Epilepsy, unspecified, not intractable, without status epilepticus; D70.9 Neutropenia, unspecified; R63.0 Anorexia; D64.9 Anemia, unspecified; F17.210 Nicotine dependence, cigarettes, uncomplicated; E86.1 Hypovolemia
CPT/HCPCS: 36415; 70450-TC; 70551-TC; 76700-TC; 80048; 80053; 80164; 80175; 80177; 80307; 81003; 82607; 82728; 82746; 83540; 83550; 83615; 83690; 83735; 84100; 84439; 84443; 84703; 85025; 85027; 85044; 85610; 85651; 85730; 86038; 86140; 86593; 87040; 87389; 93005; 93010; 93306-TC; 93880-TC; 97116-GP; 97161-GP; 99285-25; G0378; J0131; J7030; Q0162

== ENCOUNTER 2018-12-05 13:02 | Emergency (ER) | payer OTHER ==
[2018-12-05 13:52] VITALS: BP 98/63; PULSE 82; TEMP 98.3; BMI 16.9
[2018-12-05] MEDS ORDERED: ALBUTEROL SO4 2.5/IPRATROPIUM 0.5 INH SOL 3 ML VIAL.NEB. NEB ONE ×2 (14:00→14:02)
--- NOTE | 2018-12-05 14:04 | PDOC ---
History of Present Illness - General Chief Complaint: Shortness of Breath Stated Complaint: SOB, Time Seen by Provider: 12/05/18 13:50 History Source: Patient, Friend Exam Limitations: No Limitations - History of Present Illness Initial Comments: 12/05/18 14:00 CHIEF COMPLAINT: Cough and shortness of breath 1 day HISTORY OF PRESENT ILLNESS: 43-year-old female with a history of seizure disorder and vertigo presents complaining of cough and shortness of breath. She has a history of cat ALLERGY and she has been staying at her friend's house where there are cats. She noted some ALLERGIC symptoms with a scratchy throat, a cough, and some shortness of breath. She denies chest pain. She denies fever. The cough has been slightly productive with white sputum. There is no leg swelling or pain there is no history of thromboemboli in her or her family. REVIEW OF SYSTEMS: No fever or chills Positive cough with white sputum No chest pain Positive mild headache last night, took 2 Advil Positive ALLERGY symptoms since yesterday, took Benadryl 4 tablets over a period of 8 hours yesterday. None today. Past History - Past Medical History Allergies/Adverse Reactions: Allergies Allergy/AdvReac Type Severity Reaction Status Date / Time cat dander Allergy Verified 12/05/18 13:49 Home Medications: Ambulatory Orders Lamotrigine [Lamictal] 100 mg PO BID 11/08/18 Levetiracetam [Keppra] 1,000 mg PO DAILY 11/08/18 levETIRAcetam [Keppra -] 1,500 mg PO HS 11/08/18 Divalproex *ER* [Depakote *ER* -] 1,000 mg PO HS #30 tablet.sa 11/13/18 Meclizine HCl 25 mg PO TID PRN #12 tab.chew 11/13/18 Albuterol Sulfate Inhaler - [Ventolin HFA Inhaler -] 2 inh PO Q4H PRN #1 inh 02/17 Diphenhydramine HCl [Benadryl Capsule -] 25 mg PO PRN PRN 12/05/18 Fluticasone Propionate [Flovent Diskus] 100 mcg IH BID #1 blst.w.dev 12/05/18 COPD: No Diabetes: No HTN: No Kidney Stones: (ONE WORKING KIDNEY) Seizures: Yes (sees an epileptologist at [facility], no recent seizures) Other medical history: EPILEPSY - Immunization History Td Vaccination: Yes Immunization Up to Date: Yes - Suicide/Smoking/Psychosocial Hx Smoking Status: Yes Smoking History: Current every day smoker Have you smoked in the past 12 months: Yes Number of Cigarettes Smoked Daily: 10 Information on smoking cessation initiated: Yes Hx Alcohol Use: No (DENIES HX,HOWER DRANK LAST NIGHT) Drug/Substance Use Hx: No *Physical Exam - Vital Signs Last Vital Signs Temp Pulse Resp BP Pulse Ox 98.3 F 82 20 98/63 100 12/05/18 13:03 12/05/18 13:03 12/05/18 13:03 12/05/18 13:03 12/05/18 13:03 - Physical Exam Comments: 12/05/18 14:02 GENERAL: The patient is awake, alert, and fully oriented, in no acute distress. Patient with occasional coughing, and audible wheezing. No respiratory distress. Speaks in full sentences. HEAD: Normal with no signs of trauma. EYES: Pupils equal, round and reactive to light, extraocular movements intact, sclera anicteric, conjunctiva clear. ENT: Ears normal, nares patent, oropharynx clear without exudates. Moist mucous membranes. NECK: Normal range of motion, supple without lymphadenopathy, JVD, or masses. LUNGS: Mild inspiratory and expiratory wheezes. Good air entry. No crackles. HEART: Regular rate and rhythm, normal S1 and S2 without murmur, rub or gallop. ABDOMEN: Soft, nontender, normoactive bowel sounds. No guarding, no rebound. No masses. EXTREMITIES: Normal range of motion, no edema. No clubbing or cyanosis. No cords, erythema, or tenderness. NEUROLOGICAL: Cranial nerves II through XII grossly intact. Normal speech, normal gait. Normal motor, sensory, and cerebellar. Mild tremor. PSYCH: Normal mood, normal affect. SKIN: Warm, Dry, normal turgor, no rashes or lesions noted. Medical Decision Making - Medical Decision Making 12/05/18 14:41 43-year-old female with history of cat ALLERGY presents after staying at her friend's with a cat present. She developed cough with white sputum and some wheezing. She has no prior history of asthma, but she does have a history of cat ALLERGY. On examination she has mild inspiratory neck injury wheezing in both lung martínez with good air entry. Impression: ALLERGIC-induced asthma, mild Plan: DuoNeb given with good results, patient feeling better. Patient will be discharged on Flovent 44 twice a day for prevention as she will be staying with her friend for 1 more week. She is also being given albuterol as a rescue inhaler. *DC/Admit/Observation/Transfer Diagnosis at time of Disposition: Allergic asthma Qualifiers: Asthma severity: mild Asthma persistence: intermittent Asthma complication type : with acute exacerbation Qualified Code(s): J45.21 - Mild intermittent asthma with (acute) exacerbation - Discharge Dispostion Disposition: HOME Condition at time of disposition: Improved Decision to Admit order: No - Prescriptions Prescriptions: Albuterol Sulfate Inhaler - [Ventolin HFA Inhaler -] 2 inh PO Q4H PRN #1 inh PRN Reason: wheezing and cough Fluticasone Propionate [Flovent Diskus] 100 mcg IH BID #1 blst.w.dev - Referrals - Patient Instructions Printed Discharge Instructions: DI for Asthma -- Adult Additional Instructions: You were evaluated today for cough and shortness of breath. Your diagnosis is cat ALLERGY causing mild asthma. Take fluticasone preventive inhaler 2 puffs twice a day for prevention of asthma while exposed to the cat. If you have cough or wheezing, take the albuterol rescue inhaler 2 puffs every 4 hours when needed. Follow-up with your primary care physician. Return to the emergency department for any worsening or severe symptoms. - Post Discharge Activity
== END 2018-12-05 14:58 | disposition home or self-care (01) ==
LOC: FER 13:02
PROC: 3E0F7GC Introduction of Other Therapeutic Substance into Respiratory Tract, Via Natural or Artificial Opening (ICD-10-PCS; principal; 2018-12-05)
DX: J45.21 Mild intermittent asthma with (acute) exacerbation (principal)
CPT/HCPCS: 99282-25

== ENCOUNTER 2019-05-06 14:14 | Inpatient (IN) | payer OTHER ==
--- NOTE | 2019-05-06 14:25 | PDOC ---
Rapid Medical Evaluation Time Seen by Provider: 05/06/19 14:23 Medical Evaluation: Allergies Allergy/AdvReac Type Severity Reaction Status Date / Time cat dander Allergy Verified 12/05/18 13:49 05/06/19 14:23 I have performed a brief in-person evaluation of this patient. The patient presents with a chief complaint of: intermittent vision loss starting in right eye and progressing to Left eye with blurred vision. Symptoms spontaneously resolve. Pertinent physical exam findings: EOMI. PERRLA. I have ordered the following: labs, CTH, EKG The patient will proceed to the ED for further evaluation. Discharge Disposition - Diagnosis Vision loss of right eye - Referrals - Patient Instructions - Post Discharge Activity
[2019-05-06 16:02] LABS: EPI CELLS 12.5 /HPF (0-5/HPF); HYALINE CASTS 15 /lpf (0-8); PH,URINE 6.5 (5.0-8.0); URINE APPEARANCE CLOUDY; URINE BACTERIA 310.4 /hpf (NEGATIVE); URINE BILIRUBIN NEGATIVE (NEGATIVE); URINE COLOR YELLOW; URINE GLUCOSE (UA) NEGATIVE (NEGATIVE); URINE KETONE TRACE (NEGATIVE); URINE LEUK ESTERASE TRACE (NEGATIVE); URINE NITRITE NEGATIVE (NEGATIVE); URINE PROTEIN NEGATIVE (NEGATIVE); URINE RBC 7 /hpf (0-4); URINE WBC 10 /hpf (0-5)
[2019-05-06 16:28] LABS: ALBUMIN 3.5 g/dl (3.4-5.0); ALK PHOS 25 U/L (45-117); ANION GAP 7 MMOL/L (8-16); BILIRUBIN,TOTAL 0.2 mg/dL (0.2-1); CALCIUM 9.5 mg/dL (8.5-10.1); CHLORIDE 108 mmol/L (98-107); CO2 26 mmol/L (21-32); CREATININE 0.7 mg/dL (0.55-1.3); GLUCOSE,RANDOM 72 mg/dL (74-106); POTASSIUM 4.2 mmol/L (3.5-5.1); SGOT/AST 14 U/L (15-37); SGPT/ALT 12 U/L (13-61); SODIUM 141 mmol/L (136-145); TOT PROT 6.9 g/dl (6.4-8.2)
[2019-05-06 16:29] LABS: BASO % 0.4 % (0-2.0); EOS % 2.6 % (0-4.5); HEMATOCRIT 32.7 % (32.4-45.2); HEMOGLOBIN 10.7 GM/dL (10.7-15.3); LYMPH % 47.6 % (8-40); MCH 29.7 pg (25.7-33.7); MCHC 32.5 g/dl (32.0-36.0); MEAN CELL VOLUME 91.3 fl (80-96); MEAN PLT VOLUME 7.5 fl (7.5-11.1); MONO % 9.8 % (3.8-10.2); NEUT % 39.6 % (42.8-82.8); PLATELET COUNT 190 K/MM3 (134-434); RBC 3.59 M/mm3 (3.60-5.2); RDW 19.6 % (11.6-15.6); WHITE BLOOD COUNT 4.8 K/mm3 (4.0-10.0)
[2019-05-06 16:44] LABS: INR 1.08 (0.83-1.09); PROTHROMBIN TIME (PATIENT) 12.7 SEC (9.7-13.0)
--- NOTE | 2019-05-06 17:14 | PDOC ---
History of Present Illness - General Chief Complaint: Nausea/Vomiting Stated Complaint: VOMITING/VISION PROBLEM Time Seen by Provider: 05/06/19 14:23 - History of Present Illness Initial Comments: 05/06/19 17:11 43f with pmh of epilepsy presetns with nausea, vomiting and 4-5 month of on/off loss of vision in the left eye that's becoming increasingly frequent and long as well as nausea and vomiting today. Her vision is only intermittently lost over the right eye, not the left, and starts by becoming increasingly blurry. She She was brought by her friend who "demands answers" about her condition. Friend reached out to Dr. Jimenez who is her son's neurologist who accepted to see the patient tomorrow morning. Patient admits to have a very poor diet consisting only of [employer], mostly fries. "I hate it but that's all I can eat". Previous MRi/MRA to r/o central vertigo in October was normal. Past History - Past Medical History Allergies/Adverse Reactions: Allergies Allergy/AdvReac Type Severity Reaction Status Date / Time cat dander Allergy Verified 05/06/19 14:49 Home Medications: Ambulatory Orders Lamotrigine [Lamictal] 100 mg PO BID 11/08/18 levETIRAcetam [Keppra -] 500 mg PO BID 11/08/18 Divalproex *ER* [Depakote *ER* -] 1,000 mg PO HS #30 tablet.sa 11/13/18 Ondansetron HCl [Zofran] 4 mg PO PRN 05/06/19 COPD: No Diabetes: No HTN: No Kidney Stones: (ONE WORKING KIDNEY) Psychiatric Problems: Yes (anxiety/depression/bipolar) Seizures: Yes (sees an epileptologist at [facility], no recent seizures) - Immunization History Td Vaccination: Yes Immunization Up to Date: Yes - Suicide/Smoking/Psychosocial Hx Smoking Status: Yes Smoking History: Current every day smoker Have you smoked in the past 12 months: Yes Number of Cigarettes Smoked Daily: 1 Information on smoking cessation initiated: No 'Breaking Loose' booklet given: 12/05/18 Hx Alcohol Use: No Drug/Substance Use Hx: No Review of Systems - Review of Systems Able to Perform ROS?: Yes Is the patient limited Uzbek proficient: No Constitutional: No: Symptoms Reported *Physical Exam - Vital Signs Last Vital Signs Temp Pulse Resp BP Pulse Ox 98.1 F 91 H 16 95/74 100 05/06/19 14:25 05/06/19 14:25 05/06/19 14:25 05/06/19 14:25 05/06/19 14:25 - Physical Exam General Appearance: Yes: Appropriately Dressed, Cachetic, Thin. No: Apparent Distress HEENT: positive: EOMI, DAMIR, Normal ENT Inspection Respiratory/Chest: positive: Lungs Clear, Normal Breath Sounds. negative: Chest Tender, Respiratory Distress Cardiovascular: positive: Regular Rhythm, Regular Rate, S1, S2 Gastrointestinal/Abdominal: positive: Normal Bowel Sounds, Flat, Soft. negative : Tender Musculoskeletal: positive: Normal Inspection. negative: CVA Tenderness Extremity: positive: Normal Capillary Refill, Normal Inspection, Normal Range of Motion Neurologic: positive: Fully Oriented, Alert, Depressed Affect, Other (Right beating nystagmus upon looking to the right. ) ED Treatment Course - LABORATORY CBC & Chemistry Diagram: 05/06/19 15:06 05/06/19 15:06 - ADDITIONAL ORDERS Additional order review: Laboratory Results 05/06/19 05/06/19 05/06/19 15:06 15:06 15:06 PT with INR 12.70 INR 1.08 Sodium Potassium Chloride Carbon Dioxide Anion Gap BUN Creatinine Est GFR (CKD-EPI)AfAm Est GFR (CKD-EPI)NonAf Random Glucose Calcium Total Bilirubin AST ALT Alkaline Phosphatase Creatine Kinase Troponin I Total Protein Albumin Urine Color Yellow Urine Appearance Cloudy Urine pH 6.5 Ur Specific [place] 1.021 Urine Protein Negative Urine Glucose (UA) Negative Urine Ketones Trace H Urine Blood 1+ H Urine Nitrite Negative Urine Bilirubin Negative Urine Urobilinogen 1.0 Ur Leukocyte Esterase Trace Urine WBC (Auto) 10 Urine RBC (Auto) 7 Urine Casts (Auto) 15 U Epithel Cells (Auto) 12.5 Urine Bacteria (Auto) 310.4 Urine HCG, Qual Negative 05/06/19 15:06 PT with INR INR Sodium 141 Potassium 4.2 Chloride 108 H Carbon Dioxide 26 Anion Gap 7 L BUN 8.0 Creatinine 0.7 Est GFR (CKD-EPI)AfAm 122.99 Est GFR (CKD-EPI)NonAf 106.12 Random Glucose 72 L Calcium 9.5 Total Bilirubin 0.2 AST 14 L ALT 12 L Alkaline Phosphatase 25 L Creatine Kinase 36 Troponin I < 0.02 Total Protein 6.9 Albumin 3.5 Urine Color Urine Appearance Urine pH Ur Specific [place] Urine Protein Urine Glucose (UA) Urine Ketones Urine Blood Urine Nitrite Urine Bilirubin Urine Urobilinogen Ur Leukocyte Esterase Urine WBC (Auto) Urine RBC (Auto) Urine Casts (Auto) U Epithel Cells (Auto) Urine Bacteria (Auto) Urine HCG, Qual 05/06/19 15:06 RBC 3.59 L MCV 91.3 MCHC 32.5 RDW 19.6 H MPV 7.5 Neutrophils % 39.6 L D Lymphocytes % 47.6 H Monocytes % 9.8 Eosinophils % 2.6 Basophils % 0.4 Medical Decision Making - Medical Decision Making 05/06/19 19:42 43f with pmh of epilepsy presents to the ED for intermittent vision loss over the course of 4-5 month, [facility] head normal. LAbs within normal limits. intermittent artery disease vs MS vs psychogenic illness Spoke to Barbara who will see the patient tomorrow, asked for Brain MRI/MRA order. Patient admitted to med surg *DC/Admit/Observation/Transfer Diagnosis at time of Disposition: Vision loss of right eye - Discharge Dispostion Decision to Admit order: Yes - Referrals - Patient Instructions - Post Discharge Activity
[2019-05-06 18:29] LABS: URINE CRYSTALS CALCIUM OXALATE /hpf
[2019-05-06 18:38] LABS: CHOLESTEROL 194 mg/dL (50-200); TRIGLYCERIDES 67 mg/dL (0-150)
--- NOTE | 2019-05-06 19:15 | PDOC ---
Documentation entered by Maribel Au SCRIBE, acting as scribe for Deandra Barba MD. Deandra Barba MD: This documentation has been prepared by the Angely lazaro Sammi, SCRIBE, under my direction and personally reviewed by me in its entirety. I confirm that the documentation accurately reflects all work, treatment, procedures, and medical decision making performed by me. Attending Attestation - Resident Resident Name: Julián Goodman - ED Attending Attestation I have performed the following: I have examined & evaluated the patient, The case was reviewed & discussed with the resident, I agree w/resident's findings & plan, Exceptions are as noted - HPI HPI: 05/06/19 16:21 The patient is a 43 year old female hx seizure d/o who presents to the emergency department for evaluation of 4 months of intermittent vision loss in the both eyes. Pt reports periods of time where only her peripheral vision b/l is affected and other times when she has complete blindness in both eyes. She states she spends hours at times crawling around her apartment as she can not see. She reports her vision often comes back when she lies back and rests or falls asleep. Denies associated headaches, N/V, focal weakness/numbness, dizziness. She reports seeing a neurologist in [place] but states she will not follow up with him as he believes her symptoms are somatic in nature. She has been staying with her friend who has brought her to the ED for evaluation. Pt's friend requests consultation with Dr. Jimenez who she spoke with this morning about the pt. She denies any other complaints at this time, denies fevers, chills, stiff neck, photophobia, phonophobia, cp, sob, abd pain, rashes , LE edema. - Physicial Exam PE: 05/06/19 21:50 GENERAL: Awake, alert, and fully oriented, in no acute distress. Very thin HEAD: No signs of trauma EYES: PERRLA, EOMI, sclera anicteric, conjunctiva clear. VA 20/20. VF full. ENT: Oropharynx clear without exudates. Moist mucosa. Poor dentition NECK: Normal ROM, supple, no lymphadenopathy, JVD, or masses LUNGS: Breath sounds equal, clear to auscultation bilaterally. No wheezes, and no crackles HEART: Regular rate and rhythm, normal S1 and S2, no murmurs, rubs or gallops ABDOMEN: Soft, nontender, normoactive bowel sounds. No guarding, no rebound. No masses EXTREMITIES: Normal range of motion, no edema. No clubbing or cyanosis. No cords , erythema, or tenderness BACK: No midline spinal tenderness in cervical/thoracic/lumbar region NEUROLOGICAL: Normal speech, cranial nerves intact, negative pronator drift, 5/ 5 strength in all 4 extremities, normal sensation to light touch in all 4 extremities, normal cerebellar exam, normal gait, normal tone SKIN: Warm, Dry, normal turgor, no rashes or lesions noted. - Medical Decision Making 43yo F hx seizure d/o presents to the ED with intermittent vision loss for 4 months Vitals wnl Exam non focal, no visual sxs at this time DDx includes MS vs atypical migraines vs somatization Labs wnl Case discussed with Dr. Jimenez who recommends MRI brain w/o contrast and he will evaluate Anticipate admission.
--- NOTE | 2019-05-06 21:33 | HP ---
CHIEF COMPLAINT: PCP: HISTORY OF PRESENT ILLNESS: This is a 43 year old female with PMH significant for epilepsy diagnosed 24 years ago. She now presents with complaints of increasingly worsening episodes of blurry vision in the right eye with associated dizziness, nausea, vomiting, and generalized weakness. She was hospitalized at [facility] 11/11-11/13 2018 for vertigo, and discharged on Meclizine, which she continued for 3 months without relief of symptoms. She was then prescribed Zofran, which also did not help. A month after being discharged, (5 months ago) she started developing episodes of blurry vision in her right eye. She states that it begins gradually, with a "fuzzy feeling" and heaviness in her eye associated with generalized weakness, dizziness with both the room and her head spinning, and it progresses to blurry vision with diplopia, and sometimes with hallucinations (during an episode yesterday she saw a large bug that she knew was not real). She initially had 1 episode per day, lasting 1-2 hours, which has gradually progressed to a frequency of 1-2 episodes per day lasting upto 10 hours, rendering her incapacitated most of the day. Lying down relieves her symptoms, and walking aggravates it. She states that she feels extremely anxious when she feels an episode coming on, and as a result develops SOB and palpitations. She also complains of associated myoclonic episodes, which she believes are "pre -seizures". She states that these episodes begin suddenly in one part of the body (usually thighs, legs, arms, or shoulders), and then move to another muscle. The episodes are aggravated by lights and movement, and they resolve when she lies still in a dark room. She complains of associated vomiting and epigastric pain for the past 5-6 months. She states that she has on average 3 episodes of vomiting per day, described as beige in color, with no blood. She usually vomits after eating, and states that she can only eat buffalo wings without nausea and vomiting. The epigastric pain is gradual in onset, 8/10 in intensity, sharp in quality, intermittent in nature, non-radiating, relieved by TUMS and aggravated by movement. ER course was notable for: (1) Head CT normal (2) Restarted on Keppra, Depakote, Lamictal (3) MRI/MRA prelim read pending Recent Travel: Spent 1.5 weeks in [place] 1 month ago. Was stung by a jellyfish at the beach. No other acute illnesses/injuries, or exposure to sick contacts PAST MEDICAL HISTORY: Epilepsy diagnosed 24 years ago, does not remember the last time she had a seizure, has never been hospitalized for seizures. On Depakote, Keppra, and Lamictal PAST SURGICAL HISTORY: Kidney surgery at the age of 3 due to reflux. States that her kidney "shriveled up". Left ankle surgery at the age of 13 after she started to develop a limp at the age of 10. Does not remember why she had the surgery done, but states that " they took out a bone and replaced it with a nerve". Social History: Smokin,3 cigarettes per day since symptoms started 5-6 months ago, smoked half pack a day for 20 years before that Alcohol: socially, no binge use Drugs: states that she "did all kinds of stuff" in her 20s, but declined to elaborate Family History: Mother had stomach CA, at the age of 45 Father had liver CA Allergies cat dander Allergy (Verified 05/06/19 14:49) HOME MEDICATIONS: Home Medications Medication Instructions Recorded Lamotrigine [Lamictal] 100 mg PO BID 11/08/18 levETIRAcetam [Keppra -] 500 mg PO BID 11/08/18 Divalproex *ER* [Depakote *ER* -] 1,000 mg PO HS #30 tablet.sa 11/13/18 Ondansetron HCl [Zofran] 4 mg PO PRN 05/06/19 REVIEW OF SYSTEMS CONSTITUTIONAL: WEAKNESS, CHILLS, Absent: fever, chills, diaphoresis, generalized weakness, malaise, loss of appetite, weight change HEENT: Absent: rhinorrhea, nasal congestion, throat pain, throat swelling, difficulty swallowing, mouth swelling, ear pain, eye pain, visual changes CARDIOVASCULAR: PALPITATIONS Absent: chest pain, syncope, palpitations, irregular heart rate, lightheadedness , peripheral edema RESPIRATORY: SOB Absent: cough, shortness of breath, dyspnea with exertion, orthopnea, wheezing, stridor, hemoptysis GASTROINTESTINAL: VOMITING, NAUSEA Absent: abdominal pain, abdominal distension, nausea, vomiting, diarrhea, constipation, melena, hematochezia GENITOURINARY: Absent: dysuria, frequency, urgency, hesitancy, hematuria, flank pain, genital pain MUSCULOSKELETAL: Absent: myalgia, arthralgia, joint swelling, back pain, neck pain SKIN: Absent: rash, itching, pallor HEMATOLOGIC/IMMUNOLOGIC: Absent: easy bleeding, easy bruising, lymphadenopathy, frequent infections ENDOCRINE: Absent: unexplained weight gain, unexplained weight loss, heat intolerance, cold intolerance NEUROLOGIC: Absent: headache, focal weakness or paresthesias, dizziness, unsteady gait, seizure, mental status changes, bladder or bowel incontinence PSYCHIATRIC: Absent: anxiety, depression, suicidal or homicidal ideation, hallucinations. PHYSICAL EXAMINATION Vital Signs - 24 hr 05/06/19 05/06/19 14:25 20:24 Temperature 98.1 F 98.5 F Pulse Rate 91 H Pulse Rate [ 65 Both Radial] Respiratory 16 19 Rate Blood Pressure 95/74 Blood Pressure 101/53 L [Left Arm] O2 Sat by Pulse 100 99 Oximetry (%) GENERAL: AOx3 HEAD: Normal with no signs of trauma. EYES: Pupils equal, round and reactive to light, extraocular movements intact, sclera anicteric, conjunctiva clear. No lid lag. EARS, NOSE, THROAT: Ears normal, nares patent, oropharynx clear without exudates. Moist mucous membranes. NECK: Normal range of motion, supple without lymphadenopathy, JVD, or masses. LUNGS: Breath sounds equal, clear to auscultation bilaterally. No wheezes, and no crackles. No accessory muscle use. HEART: Regular rate and rhythm, normal S1 and S2 without murmur, rub or gallop. ABDOMEN: Soft, nontender, not distended, normoactive bowel sounds, no guarding, no rebound, no masses. No hepatomegaly or splenomegaly. MUSCULOSKELETAL: Normal range of motion at all joints. No bony deformities or tenderness. No CVA tenderness. UPPER EXTREMITIES: 2+ pulses, warm, well-perfused. No cyanosis. No clubbing. No peripheral edema. LOWER EXTREMITIES: 2+ pulses, warm, well-perfused. No calf tenderness. No peripheral edema. NEUROLOGICAL: Cranial nerves II-XII intact. Normal speech. Motor strength 5/5 BL, sensations intact B/L, Romberg, KARTHIKEYAN, Heel to Ghotra normal PSYCHIATRIC: Cooperative. Good eye contact. Appropriate mood and affect. SKIN: Warm, dry, normal turgor, no rashes or lesions noted, normal capillary refill. Laboratory Results - last 24 hr 05/06/19 05/06/19 05/06/19 15:06 15:06 15:06 WBC 4.8 RBC 3.59 L Hgb 10.7 Hct 32.7 D MCV 91.3 MCH 29.7 MCHC 32.5 RDW 19.6 H Plt Count 190 D MPV 7.5 Absolute Neuts (auto) 1.9 Neutrophils % 39.6 L D Lymphocytes % 47.6 H Monocytes % 9.8 Eosinophils % 2.6 Basophils % 0.4 Nucleated RBC % 0 PT with INR 12.70 INR 1.08 Sodium 141 Potassium 4.2 Chloride 108 H Carbon Dioxide 26 Anion Gap 7 L BUN 8.0 Creatinine 0.7 Est GFR (CKD-EPI)AfAm 122.99 Est GFR (CKD-EPI)NonAf 106.12 Random Glucose 72 L Calcium 9.5 Total Bilirubin 0.2 AST 14 L ALT 12 L Alkaline Phosphatase 25 L Creatine Kinase 36 Troponin I < 0.02 Total Protein 6.9 Albumin 3.5 Triglycerides 67 Cholesterol 194 Serum , Qual Urine Color Urine Appearance Urine pH Ur Specific [place] Urine Protein Urine Glucose (UA) Urine Ketones Urine Blood Urine Nitrite Urine Bilirubin Urine Urobilinogen Ur Leukocyte Esterase Urine WBC (Auto) Urine RBC (Auto) Urine Casts (Auto) U Epithel Cells (Auto) Urine Crystals (Auto) Urine Bacteria (Auto) Urine HCG, Qual 05/06/19 05/06/19 05/06/19 15:06 15:06 16:45 WBC RBC Hgb Hct MCV MCH MCHC RDW Plt Count MPV Absolute Neuts (auto) Neutrophils % Lymphocytes % Monocytes % Eosinophils % Basophils % Nucleated RBC % PT with INR INR Sodium Potassium Chloride Carbon Dioxide Anion Gap BUN Creatinine Est GFR (CKD-EPI)AfAm Est GFR (CKD-EPI)NonAf Random Glucose Calcium Total Bilirubin AST ALT Alkaline Phosphatase Creatine Kinase Troponin I Total Protein Albumin Triglycerides Cancelled Cholesterol Cancelled Serum , Qual Urine Color Yellow Urine Appearance Cloudy Urine pH 6.5 Ur Specific [place] 1.021 Urine Protein Negative Urine Glucose (UA) Negative Urine Ketones Trace H Urine Blood 1+ H Urine Nitrite Negative Urine Bilirubin Negative Urine Urobilinogen 1.0 Ur Leukocyte Esterase Trace Urine WBC (Auto) 10 Urine RBC (Auto) 7 Urine Casts (Auto) 15 U Epithel Cells (Auto) 12.5 Urine Crystals (Auto) Calcium oxalate Urine Bacteria (Auto) 310.4 Urine HCG, Qual Negative 05/06/19 16:45 WBC RBC Hgb Hct MCV MCH MCHC RDW Plt Count MPV Absolute Neuts (auto) Neutrophils % Lymphocytes % Monocytes % Eosinophils % Basophils % Nucleated RBC % PT with INR INR Sodium Potassium Chloride Carbon Dioxide Anion Gap BUN Creatinine Est GFR (CKD-EPI)AfAm Est GFR (CKD-EPI)NonAf Random Glucose Calcium Total Bilirubin AST ALT Alkaline Phosphatase Creatine Kinase Troponin I Total Protein Albumin Triglycerides Cholesterol Serum , Qual Cancelled Urine Color Urine Appearance Urine pH Ur Specific [place] Urine Protein Urine Glucose (UA) Urine Ketones Urine Blood Urine Nitrite Urine Bilirubin Urine Urobilinogen Ur Leukocyte Esterase Urine WBC (Auto) Urine RBC (Auto) Urine Casts (Auto) U Epithel Cells (Auto) Urine Crystals (Auto) Urine Bacteria (Auto) Urine HCG, Qual ASSESSMENT/PLAN: his is a 43 year old female with PMH significant for epilepsy diagnosed 24 years ago. She now presents with complaints of increasingly worsening episodes of blurry vision in the right eye with associated dizziness, nausea, vomiting, and generalized weakness. # Visual defects - Neuro consulted, Dr. Jimenez - MRI/MRA ordered - MRI/ Doppler/ CT Head done in October 2018 was normal - Vit B12 levels ordered - TSH ordered - RPR ordered - Urine tox ordered - Ophthalmology consult - PT ordered #Hx of seizures - Cotinued home meds Depakote, Keppra, Lactrim #Epigastric pain/vomiting - Zofran 4mg PO Q6H PRN #r/o asymptomatic UTI - Trace leukocyte esterase, trace ketones - 10 WBC, 1+ Blood - Urine cx sent #FEN - Regular diet - Mg, Phos ordered #DVT PE - Heparin 5000 Visit type - Emergency Visit Emergency Visit: Yes ED Registration Date: 05/06/19 Care time: The patient presented to the Emergency Department on the above date and was hospitalized for further evaluation of their emergent condition. - New Patient This patient is new to me today: Yes Date on this admission: 05/07/19 - Critical Care Critical Care patient: No ATTENDING PHYSICIAN STATEMENT I saw and evaluated the patient. I reviewed the resident's note and discussed the case with the resident. I agree with the resident's findings and plan as documented. SUBJECTIVE: OBJECTIVE: ASSESSMENT AND PLAN:
[2019-05-06] MEDS ORDERED: ONDANSETRON 4 MG TABLET PO SCH (23:00)
[2019-05-06] MEDS: lamoTRIgine 100 MG TABLET (FP) PO SCH (23:42)
[2019-05-06] MEDS: levETIRAcetam 500 MG TABLET (FP) PO SCH (23:42)
[2019-05-06] MEDS: DIVALPROEX NA *ER* EXTEND REL 500 MG TABLET.SA (FP) PO SCH (23:42)
[2019-05-06] MEDS: HEPARIN NA (PORCINE) 5,000 UNITS/ML 1ML VIAL SQ SCH (23:43)
[2019-05-07] MEDS ORDERED: ONDANSETRON 4 MG TABLET PO PRN ×2 (00:30→16:00)
--- NOTE | 2019-05-07 01:47 | PN ---
Teaching Attending Note Name of Resident: Zain Snyder ATTENDING PHYSICIAN STATEMENT I saw and evaluated the patient. Chart, data, imaging reviewed I reviewed the resident's note and discussed the case with the resident. I agree with the resident's findings and plan as documented. SUBJECTIVE: 43 year old female with PMH significant for epilepsy diagnosed 24 years ago, intermittent vertigo, benzo abuse, seen this past october for vertigo and had brain mri, carotid duplex, and echo which were essentially normal. Now with complaints of intermittent visual loss in her left eye followed by right eye for the last 4 months. She had many other complaints including feeling "fuzzy" around her toes and heels as well as upper extremities b/l. She was urged to come to ER by her friend. Patient is not very cooperative with rest of interview and says she wants to sleep. Dr. Jimenez was consulted from ER and recommended brain MRI. OBJECTIVE: Last Vital Signs Temp Pulse Resp BP Pulse Ox 98.2 F 67 18 98/57 L 99 05/06/19 23:17 05/06/19 23:17 05/06/19 23:17 05/06/19 23:17 05/06/19 20:24 general- nad, drowsy heent- nt, clear conjuncitva -patient not cooperative with rest of exam Abnormal Lab Results 05/06/19 05/06/19 05/06/19 15:06 15:06 15:06 RBC 3.59 L RDW 19.6 H Neutrophils % 39.6 L D Lymphocytes % 47.6 H Chloride 108 H Anion Gap 7 L Random Glucose 72 L AST 14 L ALT 12 L Alkaline Phosphatase 25 L Urine Ketones Trace H Urine Blood 1+ H Head CT reviewed ASSESSMENT AND PLAN: Chronic intermittent b/l visual defects. Uncertain etiology. Should r/o demylinating neuro disease. R/o vit b12 deficiency, syphilis. Possible psychiatric component ? Noncompliant with physical exam at this time. -brain mri/mra -vit b12 level -tsh -rpr -urine toxicology screen -neuro consult -consider opthalmology eval #Hx of epilepsy- no recent episodes reported -c/w home meds- keppra, lamotrigine, divalproex -dvt ppx -heparin sc
[2019-05-07] MEDS ORDERED: HEPARIN NA (PORCINE) 5,000 UNITS/ML 1ML VIAL SQ SCH (02:00)
[2019-05-07] MEDS: SODIUM CHLORIDE 500 ML IV STA ×2 (06:31→06:39)
[2019-05-07] MEDS: HEPARIN NA (PORCINE) 5,000 UNITS/ML 1ML VIAL SQ SCH ×2 (06:42→14:52)
[2019-05-07 07:43] LABS: BASO % 0.5 % (0-2.0); EOS % 2.9 % (0-4.5); HEMATOCRIT 28.7 % (32.4-45.2); HEMOGLOBIN 9.5 GM/dL (10.7-15.3); LYMPH % 57.4 % (8-40); MCH 29.9 pg (25.7-33.7); MCHC 33.1 g/dl (32.0-36.0); MEAN CELL VOLUME 90.2 fl (80-96); MEAN PLT VOLUME 7.3 fl (7.5-11.1); MONO % 10.1 % (3.8-10.2); NEUT % 29.1 % (42.8-82.8); PLATELET COUNT 172 K/MM3 (134-434); RBC 3.18 M/mm3 (3.60-5.2); WHITE BLOOD COUNT 4.1 K/mm3 (4.0-10.0)
[2019-05-07 08:24] LABS: ALBUMIN 3.1 g/dl (3.4-5.0); BILIRUBIN,TOTAL 0.2 mg/dL (0.2-1); BLOOD UREA NITROGEN 10.5 mg/dL (7-18); CALCIUM 8.8 mg/dL (8.5-10.1); CREATININE 0.6 mg/dL (0.55-1.3); MAGNESIUM 2.2 mg/dL (1.8-2.4); PHOSPHOROUS 3.8 mg/dL (2.5-4.9); POTASSIUM 3.5 mmol/L (3.5-5.1); TOT PROT 5.9 g/dl (6.4-8.2)
--- NOTE | 2019-05-07 09:24 | CONSULT ---
Consult - text type - Consultation Consultation Note: Neurology CHIEF COMPLAINT: Visual disturbance HISTORY OF PRESENT ILLNESS: 43 year old female with PMH significant for epilepsy diagnosed 24 years ago. She now presents with complaints of increasingly worsening episodes of blurry vision in the right eye with associated dizziness, nausea, vomiting, and generalized weakness. She was hospitalized at [facility] 11/11-11/13 2018 for vertigo, and discharged on Meclizine, which she continued for 3 months without relief of symptoms. She was then prescribed Zofran, which also did not help. Thereafter, she started developing episodes of blurry vision in her right eye. She states that it begins gradually, with a "fuzzy feeling" and heaviness in her eye associated with generalized weakness, dizziness with both the room and her head spinning, and it progresses to blurry vision with diplopia, and sometimes with hallucinations (during an episode yesterday she saw a large bug that she knew was not real). She initially had 1 episode per day, lasting 1-2 hours, which has gradually progressed to a frequency of 1-2 episodes per day lasting upto 10 hours, rendering her incapacitated most of the day. Lying down relieves her symptoms, and walking aggravates it. She states that she feels extremely anxious when she feels an episode coming on, and as a result develops SOB and palpitations. She complains of associated vomiting and epigastric pain for the past 5-6 months. She states that she has on average 3 episodes of vomiting per day, described as beige in color, with no blood. She usually vomits after eating , and states that she can only eat buffalo wings without nausea and vomiting. The epigastric pain is gradual in onset, 8/10 in intensity, sharp in quality, intermittent in nature, non-radiating, relieved by TUMS and aggravated by movement. I was contacted by her friend yesterday who I know as the friend was concerned regarding the patient. The family brought the patient to the hospitalfor further evaluation and management. Based on symptoms are recommended having MRI and MRA of the brain to evaluate for any structural abnormalities which were completed overnight and were essentially within normal limits. Speaking with the patient, she sees Dr. Wang at [facility], who is known to me from my training at [facility]. He has expertise in neuropsych and tthe patient has been seeing him for approximately 20 years. I advised that it would be in her best interest to follow up with him as my sense is that she has both neurologic and psychiatric conditions that are manifesting in her series of symptoms. She is in the process of medication adjustments with Dr. Kathleen ledbetter it would be preferred for her to maintain close follow-up with him. Recent Travel: Spent 1.5 weeks in [place] 1 month ago. Was stung by a jellyfish at the beach. No other acute illnesses/injuries, or exposure to sick contacts PAST MEDICAL HISTORY: Epilepsy diagnosed 24 years ago, does not remember the last time she had a seizure, has never been hospitalized for seizures. On Depakote, Keppra, and Lamictal PAST SURGICAL HISTORY: Kidney surgery at the age of 3 due to reflux. States that her kidney "shriveled up". Left ankle surgery at the age of 13 after she started to develop a limp at the age of 10. Does not remember why she had the surgery done, but states that " they took out a bone and replaced it with a nerve". Social History: Smokin,3 cigarettes per day since symptoms started 5-6 months ago, smoked half pack a day for 20 years before that Alcohol: socially, no binge use Drugs: states that she "did all kinds of stuff" in her 20s, but declined to elaborate Family History: Mother had stomach CA, at the age of 45 Father had liver CA Allergies cat dander Allergy (Verified 05/06/19 14:49) HOME MEDICATIONS: Home Medications Medication Instructions Recorded Lamotrigine [Lamictal] 100 mg PO BID 11/08/18 levETIRAcetam [Keppra -] 500 mg PO BID 11/08/18 Divalproex *ER* [Depakote *ER* -] 1,000 mg PO HS #30 tablet.sa 11/13/18 Ondansetron HCl [Zofran] 4 mg PO PRN 05/06/19 REVIEW OF SYSTEMS CONSTITUTIONAL: WEAKNESS, CHILLS, Absent: fever, chills, diaphoresis, generalized weakness, malaise, loss of appetite, weight change HEENT: Absent: rhinorrhea, nasal congestion, throat pain, throat swelling, difficulty swallowing, mouth swelling, ear pain, eye pain, visual changes CARDIOVASCULAR: PALPITATIONS Absent: chest pain, syncope, palpitations, irregular heart rate, lightheadedness , peripheral edema RESPIRATORY: SOB Absent: cough, shortness of breath, dyspnea with exertion, orthopnea, wheezing, stridor, hemoptysis GASTROINTESTINAL: VOMITING, NAUSEA Absent: abdominal pain, abdominal distension, nausea, vomiting, diarrhea, constipation, melena, hematochezia GENITOURINARY: Absent: dysuria, frequency, urgency, hesitancy, hematuria, flank pain, genital pain MUSCULOSKELETAL: Absent: myalgia, arthralgia, joint swelling, back pain, neck pain SKIN: Absent: rash, itching, pallor HEMATOLOGIC/IMMUNOLOGIC: Absent: easy bleeding, easy bruising, lymphadenopathy, frequent infections ENDOCRINE: Absent: unexplained weight gain, unexplained weight loss, heat intolerance, cold intolerance NEUROLOGIC: Absent: headache, focal weakness or paresthesias, dizziness, unsteady gait, seizure, mental status changes, bladder or bowel incontinence PSYCHIATRIC: Absent: anxiety, depression, suicidal or homicidal ideation, hallucinations. PHYSICAL EXAMINATION Vital Signs - 24 hr 05/06/19 05/06/19 14:25 20:24 Temperature 98.1 F 98.5 F Pulse Rate 91 H Pulse Rate [ 65 Both Radial] Respiratory 16 19 Rate Blood Pressure 95/74 Blood Pressure 101/53 L [Left Arm] O2 Sat by Pulse 100 99 Oximetry (%) GENERAL: AOx3 HEAD: Normal with no signs of trauma. EYES: Pupils equal, round and reactive to light, extraocular movements intact, sclera anicteric, conjunctiva clear. No lid lag. EARS, NOSE, THROAT: Ears normal, nares patent, oropharynx clear without exudates. Moist mucous membranes. NECK: Normal range of motion, supple without lymphadenopathy, JVD, or masses. LUNGS: Breath sounds equal, clear to auscultation bilaterally. No wheezes, and no crackles. No accessory muscle use. HEART: Regular rate and rhythm, normal S1 and S2 without murmur, rub or gallop. ABDOMEN: Soft, nontender, not distended, normoactive bowel sounds, no guarding, no rebound, no masses. No hepatomegaly or splenomegaly. MUSCULOSKELETAL: Normal range of motion at all joints. No bony deformities or tenderness. No CVA tenderness. UPPER EXTREMITIES: 2+ pulses, warm, well-perfused. No cyanosis. No clubbing. No peripheral edema. LOWER EXTREMITIES: 2+ pulses, warm, well-perfused. No calf tenderness. No peripheral edema. NEUROLOGICAL: Cranial nerves II-XII intact. Normal speech. Motor strength 5/5 BL, sensations intact B/L, Romberg, KARTHIKEYAN, Heel to Ghotra normal PSYCHIATRIC: Cooperative. Good eye contact. Appropriate mood and affect. SKIN: Warm, dry, normal turgor, no rashes or lesions noted, normal capillary refill. CBCD WBC 4.1 K/mm3 (4.0-10.0) 05/07/19 06:40 RBC 3.18 M/mm3 (3.60-5.2) L 05/07/19 06:40 Hgb 9.5 GM/dL (10.7-15.3) L 05/07/19 06:40 Hct 28.7 % (32.4-45.2) L 05/07/19 06:40 MCV 90.2 fl (80-96) 05/07/19 06:40 MCHC 33.1 g/dl (32.0-36.0) 05/07/19 06:40 RDW 20.0 % (11.6-15.6) H 05/07/19 06:40 Plt Count 172 K/MM3 (134-434) 05/07/19 06:40 MPV 7.3 fl (7.5-11.1) L 05/07/19 06:40 CMP Sodium 143 mmol/L (136-145) 05/07/19 06:40 Potassium 3.5 mmol/L (3.5-5.1) 05/07/19 06:40 Chloride 106 mmol/L (98-107) 05/07/19 06:40 Carbon Dioxide 27 mmol/L (21-32) 05/07/19 06:40 Anion Gap 10 MMOL/L (8-16) 05/07/19 06:40 BUN 10.5 mg/dL (7-18) 05/07/19 06:40 Creatinine 0.6 mg/dL (0.55-1.3) 05/07/19 06:40 Random Glucose 67 mg/dL (74-106) L 05/07/19 06:40 Calcium 8.8 mg/dL (8.5-10.1) 05/07/19 06:40 Total Bilirubin 0.2 mg/dL (0.2-1) 05/07/19 06:40 AST 7 U/L (15-37) L 05/07/19 06:40 ALT 10 U/L (13-61) L 05/07/19 06:40 Alkaline Phosphatase 21 U/L (45-117) L 05/07/19 06:40 Total Protein 5.9 g/dl (6.4-8.2) L 05/07/19 06:40 Albumin 3.1 g/dl (3.4-5.0) L 05/07/19 06:40 CARDIAC ENZYMES Creatine Kinase 29 U/L (26-192) 05/07/19 06:40 Troponin I < 0.02 ng/ml (0.00-0.05) 05/07/19 06:40 ASSESSMENT/PLAN: 43 year old female with PMH significant for epilepsy diagnosed 24 years ago. She now presents with complaints of increasingly worsening episodes of blurry vision in the right eye with associated dizziness, nausea, vomiting, and generalized weakness. Based on symptoms are recommended having MRI and MRA of the brain to evaluate for any structural abnormalities which were completed overnight and were essentially within normal limits. Speaking with the patient, she sees Dr. Wang at [facility], who is known to me from my training at [facility]. He has expertise in neuropsych and tthe patient has been seeing him for approximately 20 years. I advised that it would be in her best interest to follow up with him as my sense is that she has both neurologic and psychiatric conditions that are manifesting in her series of symptoms. She is in the process of medication adjustments with Dr. Kathleen floresnd it would be preferred for her to maintain close follow-up with him. Recommend continuing her current dose of medications for now and would recommend expedite follow-up appointment. Inpatient psych consult may be of benefit. She may also benefit from GI specialist as well as unclear whether she had seen one. Ophthalmology consult also recommended. increased by mouth intake would be of benefit, hydration as tolerated. Seizure precautions recommended.
[2019-05-07] MEDS: levETIRAcetam 500 MG TABLET (FP) PO SCH (10:41)
[2019-05-07] MEDS: lamoTRIgine 100 MG TABLET (FP) PO SCH (10:41)
--- NOTE | 2019-05-07 13:26 | PN ---
Teaching Attending Note Name of Resident: Mae Marr ATTENDING PHYSICIAN STATEMENT I saw and evaluated the patient. I reviewed the resident's note and discussed the case with the resident. I agree with the resident's findings and plan as documented. SUBJECTIVE: no fever or chills. reports blurry vision in R eye. and diplopia just in R eye. No ZARAGOZA . feels nauseous. reports being in multiple hospitals and ERs for the same reasons, got Cts of her head and an MRI and her neurologist told her she has side effects of her meds. She thinks discharging is not a good idea. she feels weaker on her R side and feels numb in R face OBJECTIVE: Flat affect, avoids eye contact, cachectic. CV: RRR, no MRG HEENT: MMM, no facial droop Ext : No edema or erythema on legs or arms Lungs: CTAB NEuro: EOMI, round equal pupils, reactive to light, no facial droop, tongue and uvula at midline. strength 5/5 in upper and lower extremities proximally and distally. sensation to light touch is decreased in R face, RUE and RLE. reflexes 1+ biceps and knee jerk b/l visual field intact. A/P : 43 y/o lady with h/o vertigo and seizures who presented with 4 month history of blurry vision and diplopia in R eye. 1- Blurry vision : unclear reason. ? unilateral diplopia is questionable. - MRI/A neg . neuro eval appreciated. - will get ophth opinion - multiple visits to multiple ERs and previous multiple admisisons to different hospitals ( [place] ) , raises the suspicion for factitious disorder vs psychosomatic disorder - get psych eval after ophthalmology - RPR neg , TSH and B12 nl 2- N/V : no witnessed vomiting. electrolytes are normal . monitor . looks euvolemic 3- leukopenia/neutropenia: chronci , likely due to Keppra 4- H/o Seizures : cont her current meds . out pt f/u with her neurologist who is tapering her meds DVT PX 1
--- NOTE | 2019-05-07 13:59 | PN ---
Physical Exam: SUBJECTIVE: Patient seen and examined at the bedside. She is still endorsing blurry and double vision in her right eye that spreads to her left. She states that she hasn't vomited but attributes that to the fact that she hasn't eaten. The patient still endorses nausea. OBJECTIVE: Vital Signs Period Temp Pulse Resp BP Sys/Kumar Pulse Ox Last 24 Hr 97.9 F-98.5 F 65-91 16-19 85-101/49-74 98-100 GENERAL: AOx4, extremely thin HEAD: Normal with no signs of trauma. EYES: Pupils equal, round and reactive to light, extraocular movements intact, sclera anicteric, conjunctiva clear. No lid lag. EARS, NOSE, THROAT: Ears normal, nares patent, oropharynx clear without exudates. Moist mucous membranes. NECK: Normal range of motion, supple without lymphadenopathy, JVD, or masses. LUNGS: Breath sounds equal, clear to auscultation bilaterally. No wheezes, and no crackles. No accessory muscle use. HEART: Regular rate and rhythm, normal S1 and S2 without murmur, rub or gallop. ABDOMEN: Soft, nontender, not distended, normoactive bowel sounds, no guarding, no rebound, no masses. MUSCULOSKELETAL: Normal range of motion at all joints. No bony deformities or tenderness. No CVA tenderness. UPPER EXTREMITIES: 2+ pulses, warm, well-perfused. No cyanosis. No clubbing. No peripheral edema. LOWER EXTREMITIES: 2+ pulses, warm, well-perfused. No peripheral edema. NEUROLOGICAL: Cranial nerves II-XII intact. Normal speech. Motor strength 5/5 BL, sensation equal to light tough bilaterally in extremities. Patient endorses decreased sensation to light touch in CN V. PSYCHIATRIC: Cooperative. Poor eye contact, flat affect. SKIN: Warm, dry, normal turgor, no rashes or lesions noted, normal capillary refill. Laboratory Results - last 24 hr 05/06/19 05/06/19 05/06/19 15:06 15:06 15:06 WBC 4.8 RBC 3.59 L Hgb 10.7 Hct 32.7 D MCV 91.3 MCH 29.7 MCHC 32.5 RDW 19.6 H Plt Count 190 D MPV 7.5 Absolute Neuts (auto) 1.9 Neutrophils % 39.6 L D Lymphocytes % 47.6 H Monocytes % 9.8 Eosinophils % 2.6 Basophils % 0.4 Nucleated RBC % 0 PT with INR 12.70 INR 1.08 Sodium 141 Potassium 4.2 Chloride 108 H Carbon Dioxide 26 Anion Gap 7 L BUN 8.0 Creatinine 0.7 Est GFR (CKD-EPI)AfAm 122.99 Est GFR (CKD-EPI)NonAf 106.12 Random Glucose 72 L Calcium 9.5 Phosphorus Magnesium Total Bilirubin 0.2 AST 14 L ALT 12 L Alkaline Phosphatase 25 L Creatine Kinase 36 Troponin I < 0.02 Total Protein 6.9 Albumin 3.5 Triglycerides 67 Cholesterol 194 Vitamin B12 TSH Serum , Qual Urine Color Urine Appearance Urine pH Ur Specific Mackey Urine Protein Urine Glucose (UA) Urine Ketones Urine Blood Urine Nitrite Urine Bilirubin Urine Urobilinogen Ur Leukocyte Esterase Urine WBC (Auto) Urine RBC (Auto) Urine Casts (Auto) U Epithel Cells (Auto) Urine Crystals (Auto) Urine Bacteria (Auto) Urine HCG, Qual RPR Titer 05/06/19 05/06/19 05/06/19 15:06 15:06 16:45 WBC RBC Hgb Hct MCV MCH MCHC RDW Plt Count MPV Absolute Neuts (auto) Neutrophils % Lymphocytes % Monocytes % Eosinophils % Basophils % Nucleated RBC % PT with INR INR Sodium Potassium Chloride Carbon Dioxide Anion Gap BUN Creatinine Est GFR (CKD-EPI)AfAm Est GFR (CKD-EPI)NonAf Random Glucose Calcium Phosphorus Magnesium Total Bilirubin AST ALT Alkaline Phosphatase Creatine Kinase Troponin I Total Protein Albumin Triglycerides Cancelled Cholesterol Cancelled Vitamin B12 TSH Serum , Qual Urine Color Yellow Urine Appearance Cloudy Urine pH 6.5 Ur Specific Mackey 1.021 Urine Protein Negative Urine Glucose (UA) Negative Urine Ketones Trace H Urine Blood 1+ H Urine Nitrite Negative Urine Bilirubin Negative Urine Urobilinogen 1.0 Ur Leukocyte Esterase Trace Urine WBC (Auto) 10 Urine RBC (Auto) 7 Urine Casts (Auto) 15 U Epithel Cells (Auto) 12.5 Urine Crystals (Auto) Calcium oxalate Urine Bacteria (Auto) 310.4 Urine HCG, Qual Negative RPR Titer 05/06/19 05/07/19 05/07/19 16:45 06:40 06:40 WBC 4.1 RBC 3.18 L Hgb 9.5 L Hct 28.7 L MCV 90.2 MCH 29.9 MCHC 33.1 RDW 20.0 H Plt Count 172 MPV 7.3 L Absolute Neuts (auto) 1.2 L Neutrophils % 29.1 L D Lymphocytes % 57.4 H D Monocytes % 10.1 Eosinophils % 2.9 Basophils % 0.5 Nucleated RBC % 0 PT with INR INR Sodium 143 Potassium 3.5 Chloride 106 Carbon Dioxide 27 Anion Gap 10 BUN 10.5 Creatinine 0.6 Est GFR (CKD-EPI)AfAm 129.39 Est GFR (CKD-EPI)NonAf 111.64 Random Glucose 67 L Calcium 8.8 Phosphorus 3.8 Magnesium 2.2 Total Bilirubin 0.2 AST 7 L ALT 10 L Alkaline Phosphatase 21 L Creatine Kinase Troponin I Total Protein 5.9 L Albumin 3.1 L Triglycerides Cholesterol Vitamin B12 787 TSH 3.22 Serum , Qual Cancelled Urine Color Urine Appearance Urine pH Ur Specific Mackey Urine Protein Urine Glucose (UA) Urine Ketones Urine Blood Urine Nitrite Urine Bilirubin Urine Urobilinogen Ur Leukocyte Esterase Urine WBC (Auto) Urine RBC (Auto) Urine Casts (Auto) U Epithel Cells (Auto) Urine Crystals (Auto) Urine Bacteria (Auto) Urine HCG, Qual RPR Titer 05/07/19 05/07/19 05/07/19 06:40 06:40 06:40 WBC RBC Hgb Hct MCV MCH MCHC RDW Plt Count MPV Absolute Neuts (auto) Neutrophils % Lymphocytes % Monocytes % Eosinophils % Basophils % Nucleated RBC % PT with INR INR Sodium Potassium Chloride Carbon Dioxide Anion Gap BUN Creatinine Est GFR (CKD-EPI)AfAm Est GFR (CKD-EPI)NonAf Random Glucose Calcium Phosphorus Magnesium Total Bilirubin AST ALT Alkaline Phosphatase Creatine Kinase 29 Troponin I < 0.02 Total Protein Albumin Triglycerides Cholesterol Vitamin B12 Cancelled TSH Serum , Qual Urine Color Urine Appearance Urine pH Ur Specific Mackey Urine Protein Urine Glucose (UA) Urine Ketones Urine Blood Urine Nitrite Urine Bilirubin Urine Urobilinogen Ur Leukocyte Esterase Urine WBC (Auto) Urine RBC (Auto) Urine Casts (Auto) U Epithel Cells (Auto) Urine Crystals (Auto) Urine Bacteria (Auto) Urine HCG, Qual RPR Titer Nonreactive Active Medications Generic Name Dose Route Start Last Admin Trade Name Freq PRN Reason Stop Dose Admin Divalproex Sodium 1,000 mg 05/06/19 22:00 05/06/19 23:42 Depakote *Er* - PO 1,000 mg HS [place] Administration Heparin Sodium (Porcine) 5,000 unit 05/06/19 23:15 05/07/19 06:42 Heparin - SQ 5,000 unit TID [place] Administration Lamotrigine 100 mg 05/06/19 23:00 05/07/19 10:41 Lamictal - PO 100 mg BID [place] Administration Levetiracetam 500 mg 05/06/19 23:00 05/07/19 10:41 Keppra - PO 500 mg BID [place] Administration Ondansetron HCl 4 mg 05/07/19 00:30 05/07/19 10:41 Zofran - PO 4 mg Q6H PRN Administration NAUSEA AND/OR VOMITING ASSESSMENT/PLAN: his is a 43 year old female with PMH significant for epilepsy diagnosed 24 years ago. She now presents with complaints of increasingly worsening episodes of blurry vision in the right eye with associated dizziness, nausea, vomiting, and generalized weakness. # Blurry vision/ diplopia - Neuro consulted, Dr. Jimenez, appreciate recommendations - MRI/MRA unremarkable - MRI/ Doppler/ CT Head done in October 2018 was normal - Vit B12, TSH, within reference ranges - RPR negative - ophthalmology consulted, spoke to Dr. Richardson over the phone who stated that given the patient's labs, imaging studies, and physical exam findings it is unlikely that there is an acute ophthalmic process going on. She recommends that the patient follow up in her clinic as an outpatient to better assess the vision changes. - PT ordered - Psychiatry also consulted as patient endorsing unusual neurologic symptoms, including monocular diplopia. Patient has history of multiple recent admissions to various hospitals for similar complaints. Suspicious for conversion disorder vs. factitious disorder vs psychosomatic disorder #Hx of seizures - Cotinued home meds Depakote, Keppra, Lactrim #Epigastric pain/vomiting- patient is euvolemic on exam, will continue to monitor. - Zofran 4mg PO Q6H PRN # Severe malnutrition - BMI of 16.3, patient is extremely thin on exam, states she is nauseated and has a poor appetite - Seen by researcher, appreciate recommendations - Regular diet - Ensure Compact BID and Ensure pudding BID between meals - would benefit from psych consult to r/o eating disorder #FEN - Regular diet - monitor lytes, replete prn #DVT PE - Heparin 5000 Visit type - Emergency Visit Emergency Visit: Yes ED Registration Date: 05/06/19 Care time: The patient presented to the Emergency Department on the above date and was hospitalized for further evaluation of their emergent condition. - New Patient This patient is new to me today: Yes Date on this admission: 05/07/19 - Critical Care Critical Care patient: No - Discharge Referral Referred to [facility] Med [facility].C[facility] No ATTENDING PHYSICIAN STATEMENT I saw and evaluated the patient. I reviewed the resident's note and discussed the case with the resident. I agree with the resident's findings and plan as documented. SUBJECTIVE: OBJECTIVE: ASSESSMENT AND PLAN:
--- NOTE | 2019-05-07 14:10 | EKG ---
Test Reason : Blood Pressure : / mmHG Vent. Rate : 075 BPM Atrial Rate : 075 BPM P-R Int : 132 ms QRS Dur : 076 ms QT Int : 384 ms P-R-T Axes : 073 076 049 degrees QTc Int : 428 ms POOR DATA QUALITY, INTERPRETATION MAY BE ADVERSELY AFFECTED NORMAL SINUS RHYTHM POSSIBLE LEFT ATRIAL ENLARGEMENT NONSPECIFIC T WAVE ABNORMALITY ABNORMAL ECG Confirmed by JACQUIE NUÑEZ MD ([id number]) on 05/07/2019 2:10:28 PM Referred By: Confirmed By:JACQUIE NUÑEZ MD
[2019-05-07 14:49] VITALS: BMI 16.2
[2019-05-07] MEDS ORDERED: MAG HYDROX/AL HYDROX/SIMETH 30 ML UNIT-DOSE CUP PO PRN (16:00)
[2019-05-07] MEDS ORDERED: PROCHLORPERAZINE INJECTION 10 MG/2 ML VIAL IVPB PRN (17:10)
--- NOTE | 2019-05-07 17:21 | CON.PSY ---
Psychiatry Consult Chief Complaint: 43 annmarie old seen for Psych eval for Malingering ?/ or Psychosomatic syndrome. Neurology consult reviewed and Patient mario ellison seeing Dr. Wang @ [facility] fo4r 5the past 20 yrs. He apparantly is a Neuro Psych. 20 matthew history of Seizure Disorder. No Psych Hospitalization , suicidal behaviour and on no Psych meds. Patient makes eye contact, reluctant to talk and repoprts she needs to throw up. She became angry and defensive. Patient knows that she3 hjad been here for a long time and time has come for to be discharged. [place] with [place] brother but not forth comingt with any useful info. Uncooperative but cleraly can comprehend. Denies an7y psych symptoms, only physical . Symptoms: reports: Conduct Problems, Oppositionalism - Previous Psychiatric Treatment Outpatient: None Inpatient: None - Previous Substance Abuse Treatment Outpatient: None Inpatient: None - Current Medications Current Medications: Active Medications Al Hydroxide/Mg Hydroxide (Mylanta Oral Suspension -) 30 ml PO Q6H PRN PRN Reason: DYSPEPSIA Last Admin: 05/07/19 16:39 Dose: 30 ml Divalproex Sodium (Depakote *Er* -) 1,000 mg PO HS [facility] Last Admin: 05/06/19 23:42 Dose: 1,000 mg Heparin Sodium (Porcine) (Heparin -) 5,000 unit SQ TID [facility] Last Admin: 05/07/19 14:52 Dose: 5,000 unit Famotidine/Sodium Chloride (Pepcid 20 Mg Premixed Ivpb -) 20 mg in 50 mls @ 100 mls/hr IVPB BID [facility] Lamotrigine (Lamictal -) 100 mg PO BID [facility] Last Admin: 05/07/19 10:41 Dose: 100 mg Levetiracetam (Keppra -) 500 mg PO BID [facility] Last Admin: 05/07/19 10:41 Dose: 500 mg Ondansetron HCl (Zofran -) 4 mg PO Q6H PRN PRN Reason: NAUSEA AND/OR VOMITING Prochlorperazine Edisylate (Compazine Injection -) 10 mg IVPB Q4H PRN PRN Reason: NAUSEA AND/OR VOMITING - Allergies Allergies: Allergies Allergy/AdvReac Type Severity Reaction Status Date / Time cat dander Allergy Verified 05/06/19 14:49 - Current Living Status Usual Living Arrangement: With Significant Other - Current Mental Status Evaluation Appearance: Well Groomed Attitude: Uncooperative - Affect Affect: Constrictive Appropriateness: Appropriate to Content - Mood Mood: Angry - Speech/Language Expressive: Coherent - Psychomotor Activity Psychomotor Activity: Slowed - Thought Process Thought Process: Intact - Thought Content Hallucinations: Absent Delusions: Absent - Self Perception Self Perception: No Impairment - Cognition Attention: Alert Orientation: Time Memory, Immediate Recall: Intact Memory, Short Term: 3/3 Memory, Remote with Promptin/3 - Concentration Serial Sevens Intact: Yes Simple Calculations Intact: Yes - Abstraction Proverb Interpretation: Intact Judgement: Minimally Impaired - Insight Insight: Intact - Impulse Control Impulse Control: Good Control - Suicidal Ideation Suicidal Ideation: No - Homicidal Ideation Homicidal Ideation: No Assessment/Plan 1) No acute Psychiatric Disorder at thi8s time. 2) Its possible that she has Psychosomatic Disorder4, Munchasen Syndrome, Histrionic Personality Disorder or Manipulative type. 3) I( would discharge her to [facility] in Care of Dr. Wang or a [facility] if She is medically stable. 3) Patient is competent to sign out AMA. 4) No Psych meds needed at this time.
[2019-05-08] MEDS: HEPARIN NA (PORCINE) 5,000 UNITS/ML 1ML VIAL SQ SCH ×5 (01:14→22:10)
[2019-05-08] MEDS: DIVALPROEX NA *ER* EXTEND REL 500 MG TABLET.SA (FP) PO SCH ×2 (01:16→22:10)
[2019-05-08] MEDS: lamoTRIgine 100 MG TABLET (FP) PO SCH ×3 (01:16→22:10)
[2019-05-08] MEDS: FAMOTIDINE 20 MG/50 ML IVPB 20 MG/50 ML MG IVPB SCH ×4 (01:17→22:10)
[2019-05-08] MEDS: levETIRAcetam 500 MG TABLET (FP) PO SCH ×3 (01:17→22:10)
[2019-05-08] MEDS ORDERED: SODIUM CHLORIDE 500 ML IV ONE (07:22)
[2019-05-08] MEDS ORDERED: SODIUM CHLORIDE 1,000 ML IV SCH (07:30)
[2019-05-08 09:06] LABS: HEMATOCRIT 27.5 % (32.4-45.2); HEMOGLOBIN 9.2 GM/dL (10.7-15.3); MCH 30.1 pg (25.7-33.7); MCHC 33.4 g/dl (32.0-36.0); MEAN CELL VOLUME 90.1 fl (80-96); MEAN PLT VOLUME 7.1 fl (7.5-11.1); PLATELET COUNT 178 K/MM3 (134-434); RBC 3.05 M/mm3 (3.60-5.2); RDW 19.9 % (11.6-15.6); WHITE BLOOD COUNT 4.1 K/mm3 (4.0-10.0)
[2019-05-08 09:31] LABS: BLOOD UREA NITROGEN 9.8 mg/dL (7-18); CALCIUM 8.8 mg/dL (8.5-10.1); CREATININE 0.6 mg/dL (0.55-1.3); POTASSIUM 4.1 mmol/L (3.5-5.1)
[2019-05-08] MEDS: ONDANSETRON 4 MG TABLET PO PRN ×2 (09:48→13:39)
--- NOTE | 2019-05-08 13:33 | PN ---
Teaching Attending Note Name of Resident: Mae Marr ATTENDING PHYSICIAN STATEMENT I saw and evaluated the patient. I reviewed the resident's note and discussed the case with the resident. I agree with the resident's findings and plan as documented. SUBJECTIVE: no fever or chills. denies blurry vision but she thinks it will come back. has no nausea. ate all her breakfast , no vomiting. OBJECTIVE: more alive and energetic today. has eye contact CV: RRR, no MRG HEENT: MMM, no facial droop Ext: No edema or erythema on legs or arms Lungs: CTAB NEuro: EOMI, round equal pupils, reactive to light, no facial droop, tongue and uvula at midline. strength 5/5 in upper and lower extremities proximally and distally. sensation to light touch is decreased in L RUE and RLE.Nl in face reflexes 1+ biceps and knee jerk b/l A/P: 43 y/o lady with h/o vertigo and seizures who presented with 4 month history of blurry vision and diplopia in R eye. 1- Blurry vision , diplopia, and numbness: likely psychosomatic , vs factitious vs other - Numbness is now on L side ( was on R side yesterday ) - MRI/A neg. neuro eval appreciated. - Dr. Alston spoke to opth i indicated no need to inpatient eval as the MRI is neg. appointment was made for her as outpt - f/u as out pt with psych and neuro - BP is on lower side which is her base line 2- N/V : not witnessed. ate all her breakfast 3- leukopenia/neutropenia: chronci , likely due to Keppra 4- H/o Seizures : cont her current meds . out pt f/u with her neurologist who is tapering her meds Dc home . will provide or prescribe a walker
[2019-05-09] MEDS: ONDANSETRON 4 MG TABLET PO PRN ×2 (00:43→09:58)
[2019-05-09] MEDS: HEPARIN NA (PORCINE) 5,000 UNITS/ML 1ML VIAL SQ SCH (05:32)
[2019-05-09 06:28] VITALS: TEMP 98.2
[2019-05-09] MEDS: lamoTRIgine 100 MG TABLET (FP) PO SCH (09:58)
[2019-05-09] MEDS: levETIRAcetam 500 MG TABLET (FP) PO SCH (09:58)
[2019-05-09] MEDS: FAMOTIDINE 20 MG/50 ML IVPB 20 MG/50 ML MG IVPB SCH (09:59)
[2019-05-09 10:01] VITALS: BP 99/60; PULSE 67
--- NOTE | 2019-05-09 15:43 | PN ---
Progress Note (short form) - Note Progress Note: Subjective: no fever or chills. She still has blurry vision in her L eye . nause but no one witnessed any vomiting she feels down but no thoughts of hurting her self or anyone else. Objective: Vital Signs: Last Vital Signs Temp Pulse Resp BP Pulse Ox 98.2 F 67 18 99/60 98 05/09/19 06:27 05/09/19 10:00 05/09/19 10:00 05/09/19 10:00 05/09/19 09:00 Physical Exam: NAD CV: RRR, no MRG HEENT: MMM, no facial droop Ext: No edema or erythema on legs or arms Lungs: CTAB NEuro: EOMI, round equal pupils, reactive to light, no facial droop, tongue and uvula at midline. strength 5/5 in upper and lower extremities proximally and Distally. sensation to light touch is decreased in R RUE and RLE and R side of the face Reflexes 1+ biceps and knee jerk b/l. A/P: 43 y/o lady with h/o vertigo and seizures who presented with 4 month history of blurry vision and diplopia in R eye. 1- Blurry vision , diplopia, and numbness: likely psychosomatic , vs factitious vs other - Numbness is now on R side ( was on L side yesterday ) - Apt made for her with dr. Richardson , ophthalmology - f/u as out pt with psych and neuro - BP is on lower side which is her base line - Spoke to Dr. elena and informed him of her feeling depressed. Inpt psych is not indicated per him 2- N/V : not witnessed. 3- leukopenia/neutropenia: chronic , likely due to Keppra 4- H/o Seizures : cont her current meds . out pt f/u with her neurologist who is tapering her meds Spoke to patient's best friend at bedside. She understands that Linda is faking all her sx and now has a clear picture after being with her for years. She has plans of getting her psychiatric care at [facility]. sam is agreeable to going for evaluation of her sx . DC Visit type - Emergency Visit Emergency Visit: Yes ED Registration Date: 05/06/19 Care time: The patient presented to the Emergency Department on the above date and was hospitalized for further evaluation of their emergent condition. - New Patient This patient is new to me today: No - Critical Care Critical Care patient: No
--- NOTE | 2019-05-09 21:18 | DS ---
Physical Exam: SUBJECTIVE: Patient seen and examined at the bedside. There were no acute events overnight, patient is agreeable and amenable to discharge. OBJECTIVE: Vital Signs Period Temp Pulse Resp BP Sys/Kumar Pulse Ox Last 24 Hr 98.2 F 67-79 18-20 86-99/50-60 98 PHYSICAL EXAM GENERAL: AOx4, extremely thin HEAD: Normal with no signs of trauma. EYES: Pupils equal, round and reactive to light, extraocular movements intact, sclera anicteric, conjunctiva clear. No lid lag. EARS, NOSE, THROAT: Ears normal, nares patent, oropharynx clear without exudates. Moist mucous membranes. NECK: Normal range of motion, supple without lymphadenopathy, JVD, or masses. LUNGS: Breath sounds equal, clear to auscultation bilaterally. No wheezes, and no crackles. No accessory muscle use. HEART: Regular rate and rhythm, normal S1 and S2 without murmur, rub or gallop. ABDOMEN: Soft, nontender, not distended, normoactive bowel sounds, no guarding, no rebound, no masses. MUSCULOSKELETAL: Normal range of motion at all joints. No bony deformities or tenderness. No CVA tenderness. UPPER EXTREMITIES: 2+ pulses, warm, well-perfused. No cyanosis. No clubbing. No peripheral edema. LOWER EXTREMITIES: 2+ pulses, warm, well-perfused. No peripheral edema. NEUROLOGICAL: Cranial nerves II-XII intact. Normal speech. Motor strength 5/5 BL, sensation equal to light tough bilaterally in extremities. Patient endorses decreased sensation to light touch in CN V. PSYCHIATRIC: Cooperative. Poor eye contact, flat affect. SKIN: Warm, dry, normal turgor, no rashes or lesions noted, normal capillary refill. LABS CBC, BMP 05/08/19 07:30 05/08/19 07:30 HOSPITAL COURSE: Date of Admission:05/06/19 This is a 43 year old female with PMH significant for epilepsy diagnosed 24 years ago. She now presents with complaints of increasingly worsening episodes of blurry vision in the right eye with associated dizziness, nausea, vomiting, and generalized weakness. Her workup in the hospital included MRI, MRA which were both unremarkable. Neurology evaluated the patient and recommended we continue her home seizure medicines. Ophthalmology was consulted and based on her imaging studies and visual complaints, determined it would be best for her to follow up as an outpeitn in clinic. Psychiatry evaluated the patient and recommended outpatient follow up as patient endorsing unusual neurologic symptoms, including monocular diplopia. Patient has history of multiple recent admissions to various hospitals for similar complaints. Suspicious for conversion disorder vs. factitious disorder vs psychosomatic disorder. Patient later admitted she does have a psychiatric history and has been hospitalized for psychiatric illness in the past. Today at the bedside she is accepting of the fact that some of her symptoms may be more psychiatric rather than physical and she is amenable to be discharged to follow up care either outpatient with her longtime neuro-psychiatrist or seek inpatient psychiatric care. Date of Discharge: 05/09/19 Minutes to complete discharge: 40 Discharge Summary Reason For Visit: VISION LOSS OF RIGHT EYE Condition: Improved - Instructions Diet, Activity, Other Instructions: You were hospitalized due to new onset blurry vision in your Right eye which spread to your Left eye and was also associated with dizziness, nausea, vomiting and weakness. While you were in the hospital your workup included blood work and an MRI and MRA, all of which were unremarkable. Physical therapy came to see you because you were weak and feeling dizzy. We consulted Dr. Richardson , the lay brother, who recommended you visit her office for a complete eye exam to rule out eye problems as the cause of your symptoms. You should also follow up with your neurologist Dr. Wang, as the recent change in dose of your epilepsy medications may also be causing your problems. Please continue to take all of your home medications as prescribed. Please follow up with the following doctors within 1 week of discharge: Appointment with at [address] [place] [address] on Friday at 10:00am Office number [phone] Dr. Wang, your neurologist at [facility], follow up with Dr. Rod form psychiatry If you experience continued symptoms of dizziness, weakness, loss of consciousness, or seizures please return to the Emergency Department immediately Referrals: Terrence Wang [Other] - 1 Week Juana Ferrer MD [Staff Physician] - Kika Richardson MD [Staff Physician] - 1 Week Disposition: HOME - Home Medications Comprehensive Discharge Medication List: Ambulatory Orders Lamotrigine [Lamictal] 100 mg PO BID 11/08/18 levETIRAcetam [Keppra -] 500 mg PO BID 11/08/18 Divalproex *ER* [Depakote *ER* -] 1,000 mg PO HS #30 tablet.sa 11/13/18 Ondansetron HCl [Zofran] 4 mg PO TID PRN 05/06/19 Miscellaneous Medical Supply [Outpatient Order] 1 each ASDIR #1 misc This patient is new to me today: No Emergency Visit: Yes ED Registration Date: 05/06/19 Care time: The patient presented to the Emergency Department on the above date and was hospitalized for further evaluation of their emergent condition. Critical Care patient: No - Discharge Referral Referred to [facility] Med P.C.: No ATTENDING PHYSICIAN STATEMENT I saw and evaluated the patient. I reviewed the resident's note and discussed the case with the resident. I agree with the resident's findings and plan as documented. SUBJECTIVE: OBJECTIVE: ASSESSMENT AND PLAN:
--- NOTE | 2019-05-09 21:19 | PN ---
Physical Exam: SUBJECTIVE: Patient seen and examined OBJECTIVE: Vital Signs Period Temp Pulse Resp BP Sys/Kumar Pulse Ox Last 24 Hr 98.2 F 67-79 18-20 86-99/50-60 98 GENERAL: AOx4, extremely thin HEAD: Normal with no signs of trauma. EYES: Pupils equal, round and reactive to light, extraocular movements intact, sclera anicteric, conjunctiva clear. No lid lag. EARS, NOSE, THROAT: Ears normal, nares patent, oropharynx clear without exudates. Moist mucous membranes. NECK: Normal range of motion, supple without lymphadenopathy, JVD, or masses. LUNGS: Breath sounds equal, clear to auscultation bilaterally. No wheezes, and no crackles. No accessory muscle use. HEART: Regular rate and rhythm, normal S1 and S2 without murmur, rub or gallop. ABDOMEN: Soft, nontender, not distended, normoactive bowel sounds, no guarding, no rebound, no masses. MUSCULOSKELETAL: Normal range of motion at all joints. No bony deformities or tenderness. No CVA tenderness. UPPER EXTREMITIES: 2+ pulses, warm, well-perfused. No cyanosis. No clubbing. No peripheral edema. LOWER EXTREMITIES: 2+ pulses, warm, well-perfused. No peripheral edema. NEUROLOGICAL: Cranial nerves II-XII intact. Normal speech. Motor strength 5/5 BL, sensation equal to light tough bilaterally in extremities. Patient endorses decreased sensation to light touch in CN V. PSYCHIATRIC: Cooperative. Poor eye contact, flat affect. SKIN: Warm, dry, normal turgor, no rashes or lesions noted, normal capillary refill. ASSESSMENT/PLAN: This is a 43 year old female with PMH significant for epilepsy diagnosed 24 years ago. She now presents with complaints of increasingly worsening episodes of blurry vision in the right eye with associated dizziness, nausea, vomiting, and generalized weakness. # Blurry vision/ diplopia - Neuro consulted, Dr. Jimenez, appreciate recommendations - MRI/MRA unremarkable - MRI/ Doppler/ CT Head done in October 2018 was normal - Vit B12, TSH, within reference ranges - RPR negative - ophthalmology consulted, spoke to Dr. Richardson over the phone who stated that given the patient's labs, imaging studies, and physical exam findings it is unlikely that there is an acute ophthalmic process going on. She recommends that the patient follow up in her clinic as an outpatient to better assess the vision changes. - PT ordered - Psychiatry also consulted as patient endorsing unusual neurologic symptoms, including monocular diplopia. Patient has history of multiple recent admissions to various hospitals for similar complaints. Suspicious for conversion disorder vs. factitious disorder vs psychosomatic disorder #Hx of seizures - Cotinued home meds Depakote, Keppra, Lactrim #Epigastric pain/vomiting- patient is euvolemic on exam, will continue to monitor. - Zofran 4mg PO Q6H PRN # Severe malnutrition - BMI of 16.3, patient is extremely thin on exam, states she is nauseated and has a poor appetite - Seen by traffic rate clerk, appreciate recommendations - Regular diet - Ensure Compact BID and Ensure pudding BID between meals - would benefit from psych consult to r/o eating disorder #FEN - Regular diet - monitor lytes, replete prn #DVT PE - Heparin 5000 Dispo: Spoke to patient and her friend who both agree some of her syptoms may be psychiatric in nature. Patient reported she has had many psychiatric hospitalizations in the past, some lasting up to a year. Patient and her friend agree it would be best for the patient to be discharged so that she can follow up outpatient with her neuro-psychiatrist or seek inpatient treatment. Visit type - Emergency Visit Emergency Visit: Yes ED Registration Date: 05/06/19 Care time: The patient presented to the Emergency Department on the above date and was hospitalized for further evaluation of their emergent condition. - New Patient This patient is new to me today: No - Critical Care Critical Care patient: No - Discharge Referral Referred to [facility] Med [facility] No ATTENDING PHYSICIAN STATEMENT I saw and evaluated the patient. I reviewed the resident's note and discussed the case with the resident. I agree with the resident's findings and plan as documented. SUBJECTIVE: OBJECTIVE: ASSESSMENT AND PLAN:
== END 2019-05-09 13:00 | disposition home or self-care (01) | DRG 124 ==
LOC: JER 14:14 → JERBED 19:27 → J5S 22:53
PROVIDERS: ADMIT Internal Medicine; ATTEND Internal Medicine
DX: H53.8 Other visual disturbances (principal); E43 Unspecified severe protein-calorie malnutrition; R64 Cachexia; F68.10 Factitious disorder imposed on self, unspecified; Z68.1 Body mass index [BMI] 19.9 or less, adult; G40.909 Epilepsy, unspecified, not intractable, without status epilepticus; R42 Dizziness and giddiness; R11.2 Nausea with vomiting, unspecified; D70.9 Neutropenia, unspecified
CPT/HCPCS: 36415; 70450-TC; 70544-TC; 70551-TC; 80048; 80053; 81003; 82465; 82550; 82607; 83735; 84100; 84443; 84478; 84484; 84703; 85025; 85027; 85610; 86593; 87086; 93005; 93010; 97116-GP; 97161-GP; 99285-25; J1644